=== PATIENT | female | born 1980 | race Caucasian/White ===

== ENCOUNTER 2017-12-31 15:25 | Emergency (ER) | payer BC, MEDICAID, OTHER ==
[2017-12-31 15:26] VITALS: BMI 36.0
[2017-12-31 16:36] VITALS: BP 113/78; PULSE 73; RESP 20; TEMP 98.1; O2SAT 98
[2017-12-31] MEDS ORDERED: Sodium Chloride 0.9% 1,000 ML IV STA (16:42)
--- NOTE | 2017-12-31 17:13 | ED PDOC ---
HPI:Nausea, Vomiting, Diarrhea Time Seen by Provider: 12/31/17 16:15 Chief Complaint (Nursing): GI Problem Chief Complaint (Provider): GI Problem History Per: Patient History/Exam Limitations: no limitations Onset/Duration Of Symptoms: Persistent (x1 week) Current Symptoms Are (Timing): Still Present Additional Complaint(s): 37 year old female, currently 13 weeks , presents to the emergency department with complaints of persistent nausea and vomiting associated with diarrhea, weakness, dizziness and mild abdominal cramping ongoing for 1 week. She reports having vaginal bleeding 2 days ago but symptom had improved since onset. She denies any fever, chills, headache or syncope. Patient has a history of previous complicated by cervical incompetence due to bed rest. INFORMATION ANALYST: Dr. Mejia at [facility] Past Medical History Reviewed: Historical Data, Nursing Documentation, Vital Signs Vital Signs: Last Vital Signs Temp 98.1 F 12/31/17 16:33 Pulse 73 12/31/17 16:33 Resp 20 12/31/17 16:33 BP 113/78 12/31/17 16:33 Pulse Ox 98 12/31/17 16:33 - Medical History PMH: No Chronic Diseases - Surgical History Other surgeries: rhinoplasty - Family History Family History: States: Unknown Family Hx - Social History Current smoker - smoking cessation education provided: No Alcohol: None Drugs: Denies - Immunization History Hx Tetanus Toxoid Vaccination: No Hx Influenza Vaccination: No Hx Pneumococcal Vaccination: No - Home Medications Home Medications: Ambulatory Orders Medication Instructions Recorded Famotidine [Pepcid] 20 mg PO BID #30 tab 04/17/15 Ondansetron ODT [Zofran ODT] 1 odt PO BID PRN #6 odt 04/17/15 - Allergies Allergies/Adverse Reactions: Allergies Allergy/AdvReac Type Severity Reaction Status Date / Time Penicillins Allergy RASH Verified 10/03/15 20:13 Review of Systems ROS Statement: Except As Marked, All Systems Reviewed And Found Negative Constitutional: Positive for: Weakness. Negative for: Fever, Chills Gastrointestinal: Positive for: Nausea, Vomiting, Diarrhea (x1), Other (mild abdominal cramping) Genitourinary Female: Positive for: Vaginal Bleeding (resolved) Neurological: Positive for: Dizziness. Negative for: Headache, Other (syncope) Physical Exam - Reviewed Nursing Documentation Reviewed: Yes Vital Signs Reviewed: Yes - Physical Exam Appears: Positive for: No Acute Distress Head Exam: Positive for: ATRAUMATIC, NORMAL INSPECTION, NORMOCEPHALIC Skin: Positive for: Dry. Negative for: Normal Color Cardiovascular/Chest: Positive for: Regular Rate, Rhythm Respiratory: Positive for: Normal Breath Sounds. Negative for: Respiratory Distress Gastrointestinal/Abdominal: Positive for: Soft, Tenderness (diffuse) Back: Positive for: Normal Inspection. Negative for: L CVA Tenderness, R CVA Tenderness Extremity: Positive for: Normal ROM (upper/lower) Neurologic/Psych: Positive for: Alert (x3), Oriented. Negative for: Motor/ Sensory Deficits - Laboratory Results Result Diagrams: 12/31/17 17:26 12/31/17 17:26 - ECG O2 Sat by Pulse Oximetry: 98 (RA) Pulse Ox Interpretation: Normal Medical Decision Making Medical Decision Making: Initial Impression: Hyperemesis; 2nd trimester Initial Plan: * CMP * Lipase * CBC * NS 1,000ml IV per 1,000mls/hr * Reglan 10mg IVP * UA Time: 1643 --US OB ordered to check fetus' wellbeing. Time: 1720 --Labs: unremarkable finding. --Urine: negative for infection. Time: 1835 --US OB FINDINGS: UTERUS: Gestational sac: Single intrauterine gestation. Measures 4.8 cm compatible with estimated gestational age of 10 weeks, 3 days. Yolk sac: Measures 0.6 cm. pole: [place]-rump length measures 3.9 cm compatible with estimated gestational age of 10 weeks, 5 days. Heart rate: 162 bpm. age (Ultrasound estimated): 10 weeks, 4 days. Nimo-gestational hemorrhage: None. Date of delivery (Ultrasound estimated) : 07/25/2018 Uterus measures 15.3 x 6.5 x 8.2 cm. Normal in size and appearance. CERVIX: Measures 5.5 cm. Long and closed. No cervical abnormality seen. RIGHT OVARY: Not visualized. LEFT OVARY: Measures 2.3 x 1.9 x 2.5 cm. Follicle/cyst measuring 1.1 x 1.0 x 1.4 cm. Normal flow. FREE FLUID: None. OTHER FINDINGS: None. IMPRESSION: Single live intrauterine gestation with average ultrasound age of 10 weeks, 4 days. heart rate 160 beats per minute. Cervix long closed. Additional IVF bolus ordered endorse Dr Martinez 710pm Scribe Attestation: Documented by Jossy Cook, acting as a scribe for Dr. Romario Puga III, DO. Provider Scribe Attestation: All medical record entries made by the Scribe were at my direction and personally dictated by me. I have reviewed the chart and agree that the record accurately reflects my personal performance of the history, physical exam, medical decision making, and the department course for this patient. I have also personally directed, reviewed, and agree with the discharge instructions and disposition. Disposition - Clinical Impression Clinical Impression: Hyperemesis gravidarum - Patient ED Disposition Is Patient to be Admitted: Transfer of Care - Disposition Disposition: Transfer of Care Disposition Time: 19:01 Condition: STABLE Forms: [facility] (Czech) Patient Signed Over To: David Martinez Handoff Comments: pending re-eval and dispo
[2017-12-31 17:30] LABS: BASO # 0.1 K/uL (0.0-0.2); BASO % 1.2 % (0.0-2.0); EOS # 0.2 K/uL (0.0-0.7); HEMOGLOBIN 12.2 g/dL (12.0-16.0); LYMPH # 3.1 K/uL (1.0-4.3); LYMPH % 33.9 % (20.0-40.0); MEAN CELL VOLUME 88.6 fl (81.0-99.0); MEAN CORPUSCULAR HEMOGLOBIN 30.6 pg (27.0-31.0); MEAN CORPUSCULAR HGB CONC 34.6 g/dL (33.0-37.0); MEAN PLATELET VOLUME 9.7 fl (7.2-11.7); MONO # 0.7 K/uL (0.0-0.8); MONO % 7.9 % (0.0-10.0); NRBC % 0.2 % (0.0-0.0); RBC 3.97 Mil/uL (3.80-5.20); RED CELL DISTRIBUTION WIDTH 13.9 % (11.5-14.5)
[2017-12-31 17:36] LABS: SQUAMOUS EPITHIAL 1 /hpf (0-5); URINE BACTERIA RARE (<OCC); URINE BILIRUBIN NEGATIVE (NEGATIVE); URINE BLOOD NEGATIVE (NEGATIVE); URINE CLARITY CLEAR (Clear); URINE COLOR STRAW (YELLOW); URINE GLUCOSE (UA) NEG (Normal); URINE LEUKOCYTE ESTERASE NEG Leu/uL (Negative); URINE PROTEIN NEGATIVE (NEGATIVE); URINE UROBILINOGEN 0.2-1.0 mg/dL (0.2-1.0)
[2017-12-31 17:45] LABS: ALB/GLOB RATIO 1.1 (1.0-2.1); ALBUMIN 3.9 g/dL (3.5-5.0); ALT/SGPT 58 U/L (9-52); AST/SGOT 35 U/L (14-36); BLOOD UREA NITROGEN 8 mg/dl (7-17); CALCIUM 9.3 mg/dL (8.4-10.2); GFR AFRICAN-AMERICAN > 60; GFR NON-AFRICAN AMERICAN > 60; LIPASE 85 U/L (23-300)
--- NOTE | 2017-12-31 18:37 | US ---
PROCEDURE: OB Pelvic Ultrasound HISTORY: 13 wks well being LMP: Unknown COMPARISON: None available. FINDINGS: UTERUS: Gestational sac: Single intrauterine gestation. Measures 4.8 cm compatible with estimated gestational age of 10 weeks, 3 days. Yolk sac: Measures 0.6 cm. pole: [place]-rump length measures 3.9 cm compatible with estimated gestational age of 10 weeks, 5 days. Heart rate: 162 bpm. age (Ultrasound estimated): 10 weeks, 4 days. Nimo-gestational hemorrhage: None. Date of delivery (Ultrasound estimated) : 07/25/2018 Uterus measures 15.3 x 6.5 x 8.2 cm. Normal in size and appearance. CERVIX: Measures 5.5 cm. Long and closed. No cervical abnormality seen. RIGHT OVARY: Not visualized. LEFT OVARY: Measures 2.3 x 1.9 x 2.5 cm. Follicle/cyst measuring 1.1 x 1.0 x 1.4 cm. Normal flow. FREE FLUID: None. OTHER FINDINGS: None. IMPRESSION: Single live intrauterine gestation with average ultrasound age of 10 weeks, 4 days. heart rate 160 beats per minute. Cervix long closed.
[2017-12-31] MEDS ORDERED: Lactated Ringer's 1,000 ML IV SCH (18:45)
--- NOTE | 2017-12-31 21:00 | ED PDOC ---
- Laboratory Results Result Diagrams: 12/31/17 17:26 12/31/17 17:26 - ECG O2 Sat by Pulse Oximetry: 98 (RA) Medical Decision Making Medical Decision Making: Time: 1899 --Patient endorsed to provider by Dr. Puga, pending re-eval and final disposition. Time: 2099 --Upon provider reevaluation, patient is feeling better, tolerating PO well and states that she wants to go home. Patient is medically stable and requires no further treatment in the ED at this time. Patient will be discharged home. Counseling was provided and all questions were answered regarding diagnosis and need for follow up with PMD in 1-2 days. There is agreement to discharge plan. Return if symptoms persist or worsen. Clinical Impression: Hyperemesis gravidarum Scribe Attestation: Documented by Jossy Cook, acting as a scribe for David Alves MD. Provider Scribe Attestation: All medical record entries made by the Scribe were at my direction and personally dictated by me. I have reviewed the chart and agree that the record accurately reflects my personal performance of the history, physical exam, medical decision making, and the department course for this patient. I have also personally directed, reviewed, and agree with the discharge instructions and disposition. Disposition Counseled Patient/Family Regarding: Studies Performed, Diagnosis, Need For Followup - Clinical Impression Clinical Impression: Hyperemesis gravidarum - POA Present On Arrival: None - Disposition Disposition: Routine/Home Disposition Time: 21:00 Condition: STABLE Additional Instructions: Take your medications. Follow up with your PCP in 2-3 days. Instructions: Hyperemesis Gravidarum
== END 2017-12-31 21:17 | disposition home or self-care (01) ==
LOC: H.ER 15:25
DX: O21.0 Mild hyperemesis gravidarum (principal); O26.891 Other specified pregnancy related conditions, first trimester; Z3A.13 13 weeks gestation of pregnancy; Z88.0 Allergy status to penicillin
CPT/HCPCS: 76815; 80053; 81003; 83690; 85025; 96361; 96374; 99283; J2765; J7030; J7120

== ENCOUNTER 2018-05-19 12:37 | Emergency (ER) | payer BC ==
[2018-05-19 12:37] VITALS: BMI 36.0
[2018-05-19 12:41] VITALS: RESP 18
[2018-05-19] MEDS ORDERED: Sodium Chloride 0.9% 1,000 ML IV STA (12:59)
--- NOTE | 2018-05-19 13:02 | ED PDOC ---
HPI: General Adult Time Seen by Provider: 05/19/18 13:00 Chief Complaint (Nursing): Dizziness/Lightheaded Chief Complaint (Provider): dizzy History Per: Patient (37 y/o female 30 weeks here with dizziness/room spinning this morning. Notes diarrhea 2 days ago. No fevers/chills. Notes nausea associated with dizziness.) Past Medical History Reviewed: Historical Data, Nursing Documentation, Vital Signs Vital Signs: Last Vital Signs Temp 98.3 F 05/19/18 12:39 Pulse 91 H 05/19/18 12:39 Resp 18 05/19/18 12:39 BP 110/77 05/19/18 12:39 Pulse Ox 100 05/19/18 12:39 - Family History Family History: States: Unknown Family Hx - Immunization History Hx Tetanus Toxoid Vaccination: No Hx Influenza Vaccination: No Hx Pneumococcal Vaccination: No - Home Medications Home Medications: Ambulatory Orders Medication Instructions Recorded Famotidine [Pepcid] 20 mg PO BID #30 tab 04/17/15 Ondansetron ODT [Zofran ODT] 1 odt PO BID PRN #6 odt 04/17/15 Meclizine [Antivert] 1 - 2 tab PO Q6 PRN #24 tab 05/19/18 - Allergies Allergies/Adverse Reactions: Allergies Allergy/AdvReac Type Severity Reaction Status Date / Time Penicillins Allergy RASH Verified 05/19/18 12:39 Review of Systems ROS Statement: Except As Marked, All Systems Reviewed And Found Negative Physical Exam - Reviewed Nursing Documentation Reviewed: Yes Vital Signs Reviewed: Yes - Physical Exam Appears: Positive for: Well, Non-toxic, No Acute Distress Head Exam: Positive for: ATRAUMATIC, NORMAL INSPECTION, NORMOCEPHALIC Skin: Positive for: Normal Color, Warm, DRY Eye Exam: Positive for: EOMI, Normal appearance, PERRL ENT: Positive for: Normal ENT Inspection Neck: Positive for: Normal, Painless ROM Cardiovascular/Chest: Positive for: Regular Rate, Rhythm Respiratory: Positive for: CNT, Normal Breath Sounds Gastrointestinal/Abdominal: Positive for: Normal Exam, Soft, Other (gravid uterus.) Back: Positive for: Normal Inspection Extremity: Positive for: Normal ROM Neurologic/Psych: Positive for: Alert, Oriented - Laboratory Results Result Diagrams: 05/19/18 13:05 05/19/18 13:05 - ECG O2 Sat by Pulse Oximetry: 100 - Progress ED Course And Treament: Reglan 10 mg iv x 1 dose NS 1 liter wide open. Antivert 25 mg x 1 dose Patient feels improved. Disposition - Clinical Impression Clinical Impression: Vertigo - Patient ED Disposition Is Patient to be Admitted: No - Disposition Disposition: Routine/Home Disposition Time: 13:51 Condition: FAIR Prescriptions: Meclizine [Antivert] 1 - 2 tab PO Q6 PRN #24 tab PRN Reason: Dizziness Instructions: Vertigo (a Type of Dizziness) (DC) Print Language: MAURITANIAN
[2018-05-19 13:24] LABS: BASO # 0.1 K/uL (0.0-0.2); BASO % 0.9 % (0.0-2.0); EOS # 0.2 K/uL (0.0-0.7); HEMOGLOBIN 11.3 g/dL (12.0-16.0); LYMPH # 2.4 K/uL (1.0-4.3); LYMPH % 23.2 % (20.0-40.0); MEAN CELL VOLUME 90.4 fl (81.0-99.0); MEAN CORPUSCULAR HEMOGLOBIN 30.5 pg (27.0-31.0); MEAN CORPUSCULAR HGB CONC 33.7 g/dL (33.0-37.0); MEAN PLATELET VOLUME 8.9 fl (7.2-11.7); MONO # 0.8 K/uL (0.0-0.8); MONO % 8.3 % (0.0-10.0); NEUT # 6.7 K/uL (1.8-7.0); NEUT % 65.6 % (50.0-75.0); NRBC % 0.1 % (0.0-0.0); RBC 3.69 Mil/uL (3.80-5.20); RED CELL DISTRIBUTION WIDTH 13.5 % (11.5-14.5); WHITE BLOOD COUNT 10.2 K/uL (4.8-10.8)
[2018-05-19 13:30] LABS: ALB/GLOB RATIO 0.9 (1.0-2.1); ALBUMIN 3.3 g/dL (3.5-5.0); ALT/SGPT 26 U/L (9-52); AST/SGOT 25 U/L (14-36); BLOOD UREA NITROGEN 6 mg/dl (7-17); CALCIUM 8.7 mg/dL (8.4-10.2); GFR NON-AFRICAN AMERICAN > 60
--- NOTE | 2018-05-19 16:22 | OBHP ---
Datetime: 05/19/2018 15:20 IP Adm Impression: , intrauterine IP Admit Plan: Observation/Evaluation Admit Comment, IP Provider: 37 y/o @ 29.6 w/KIMMY 07/29/2017 c/o intermittent dizziness _ headac he since yesterday. She states dizziness worsened today making her feel as if she would fall. She end orses +FM, denies ctx, vb, loss of fluid, f/c/vomiting, difficulty breathing or chest discomfort. +Na usea for which she takes a medication she cannot recall. OBGYNhx: 1 miscarriage PMH: denies Meds: PNV, antinausea med Allergies: penicillin- unknown reaction Surghx: denies Famhx: denies Sochx: denies EtOH, cigarette or elicit drug use ROS: all points reviewed and neg unless otherwise mentioned in HPI Gen: obese female laying in supine position Cardio: s1s2, no murmurs Lungs: cta b/l Abd: Gravid, BS+, nontender Ext: nontender, nonedematous A/P: 37 y/o @ 29.6 w/KIMMY 07/29/2017 c/o intermittent dizziness _ headache since yesterday. -Perform NST, FHR, and vitals. If stable _ reactive, discharge home. Case disussed with Dr. Forest Garg, PGY-1 NST reactive, moderate variability, vitals stable, discharge home Addendum by Dr. Ortez: Pt evaluated independently and I agree with the above Extremities - PN: Normal Abdomen - PN: Normal Lungs - PN: Normal Heart - PN: Normal General - PN: Normal FHR - Baseline A Provider: 135 Gestation - Est Wks by US: 29.6 EGA AdmitDate IP: 29.6 Vital Signs Provider: Reviewed; Within Normal Limits IP Chief Complaint: Maternal discomfort NICHD Variability Prov Fetus A: Moderate 6-25bpm NICHD Accel Fetus A IP Provider: 15X15 FHR Category Provider Fetus A: Category I NICHD Decel Fetus A IP Provider: None
--- NOTE | 2018-05-19 16:24 | OBDCSUM ---
Datetime: 05/19/2018 15:57 Discharged to, Provider: Home Follow up at, Provider: private [facility] Disch Instr Activity: Normal activity Disch Instr Diet: Regular Discharge Time: 05/19/2018 16:15 Follow up in weeks, Provider: 1-2 wks Disch Referrals: None Discharge Diagnosis Prov Other: NST
[2018-05-19 20:37] VITALS: BP 103/57; PULSE 90; TEMP 98.4; O2SAT 97
--- NOTE | 2018-05-20 09:46 | CARD ---
APPROVED REPORT Date of service: 05/19/2018 EKG Measurement Heart [id number] <Conclusion> Normal sinus rhythm Moderate voltage criteria for LVH, may be normal variant Borderline ECG
== END 2018-05-19 16:36 | disposition home or self-care (01) ==
LOC: H.EROB2 12:37
DX: O26.93 Pregnancy related conditions, unspecified, third trimester (principal); R42 Dizziness and giddiness; R11.0 Nausea; Z3A.29 29 weeks gestation of pregnancy
CPT/HCPCS: 80053; 82948; 83735; 84100; 84702; 85025; 93005; 96374; 99285; J2765; J7030

== ENCOUNTER 2018-06-15 19:57 | Emergency (ER) | payer BC ==
[2018-06-15 20:26] VITALS: BMI 38.4
[2018-06-15] MEDS: Lactated Ringer's 1,000 ML IV SCH ×2 (21:50→22:50)
--- NOTE | 2018-06-15 22:24 | OBHP ---
Datetime: 06/15/2018 22:19 IP Adm Impression: , intrauterine ; No Active Labor IP Admit Plan: Observation/Evaluation; Discharge home Admit Comment, IP Provider: The patient is a 37-year-old 4 para 2 estimated due date 019 estimated gestational age 34 weeks patient presents to labor and delivery complaining of pelvic p ressure discomfort for about 6 hours duration patient denies any vaginal bleeding leakage of fluid sh e reports good movement patient denies dysuria Past medical history none Past surgical history none Allergic to penicillin Social history denies tobacco alcohol use care patient reports borderline diabetes Review of systems patient denies headache chest pain shortness breath palpitations nausea vomiting diarrhea heat or cold intolerance easy bruisability musculoskeletal or neurological complaints Vital signs stable afebrile Physical exam see notes Intrauterine at 34 weeks Jitendra Rousseau contractions IV fluid hydration, UA, external monitor, observation Pelvic Type - PN: Adequate Extremities - PN: Normal Abdomen - PN: Normal Back - PN: Normal Breast - PN: Not Done Lungs - PN: Normal Heart - PN: Normal Thyroid - PN: Normal Neurologic - PN: Normal HEENT - PN: Normal General - PN: Normal Presentation-Admit: Breech FHR - Baseline A Provider: 145 Gestation - Est Wks by US: 34.0 EGA AdmitDate IP: 33.5 Vital Signs Provider: Reviewed IP Chief Complaint: Uterine contractions; Maternal discomfort NICHD Variability Prov Fetus A: Moderate 6-25bpm NICHD Accel Fetus A IP Provider: 10X10 FHR Category Provider Fetus A: Category I NICHD Decel Fetus A IP Provider: None Dilatation, Provider: 0 Effacement, Provider: 0 Station, Provider: -2 Genitourinary Exam: Normal DTRs - PN: Normal
[2018-06-15 22:27] LABS: SQUAMOUS EPITHIAL 4 /hpf (0-5); URINE AMORPHOUS SEDIMENT RARE /ul (<OCC); URINE BACTERIA MANY (<OCC); URINE BILIRUBIN NEGATIVE (NEGATIVE); URINE BLOOD NEGATIVE (NEGATIVE); URINE CLARITY CLOUDY (Clear); URINE COLOR YELLOW (YELLOW); URINE GLUCOSE (UA) NEG (NEGATIVE); URINE LEUKOCYTE ESTERASE NEG Leu/uL (Negative); URINE PROTEIN NEGATIVE (NEGATIVE); URINE UROBILINOGEN 0.2-1.0 mg/dL (0.2-1.0)
[2018-06-16 04:29] VITALS: BP 94/60; PULSE 89
== END 2018-06-15 23:45 | disposition home or self-care (01) ==
LOC: H.EROB2 19:57
DX: O26.93 Pregnancy related conditions, unspecified, third trimester (principal); R10.2 Pelvic and perineal pain; Z3A.34 34 weeks gestation of pregnancy
CPT/HCPCS: 81003; 96360; 96361; 99283; J7120

== ENCOUNTER 2018-07-21 08:07 | Inpatient (IN) | payer BC ==
[2018-07-21] MEDS ORDERED: ceFAZolin 2 GM in Sodium Chloride 0.9% 100 ML IVPB ONE (08:29)
[2018-07-21] MEDS: Lactated Ringer's 1,000 ML IV ONE ×2 (08:30→09:32)
[2018-07-21] MEDS ORDERED: Lactated Ringer's 1,000 ML IV SCH ×2 (08:30→14:59)
[2018-07-21] MEDS ORDERED: Oxytocin 30 UNIT 30 UNITS/500 ML BAG IV ONE ×2 (08:33→14:02)
[2018-07-21] MEDS ORDERED: OXYTOCIN/0.9 % NS 20 UNIT/1,000 ML BAG IV ONE ×2 (08:33→12:29)
[2018-07-21] MEDS ORDERED: Morphine 5 mg/10 ml preservative-free Inj(Duramorph) ONE (09:13)
[2018-07-21 09:21] LABS: BASO % 0.3 % (0.0-2.0); EOS # 0.2 K/uL (0.0-0.7); EOS % 1.9 % (0.0-4.0); HEMOGLOBIN 11.3 g/dL (12.0-16.0); LYMPH % 25.8 % (20.0-40.0); MEAN CELL VOLUME 88.1 fl (81.0-99.0); MEAN CORPUSCULAR HEMOGLOBIN 28.1 pg (27.0-31.0); MEAN PLATELET VOLUME 9.3 fl (7.2-11.7); MONO # 0.8 K/uL (0.0-0.8); MONO % 6.6 % (0.0-10.0); NEUT # 7.5 K/uL (1.8-7.0); NEUT % 65.4 % (50.0-75.0); NRBC % 0.1 % (0.0-0.0); RBC 4.02 Mil/uL (3.80-5.20); RED CELL DISTRIBUTION WIDTH 15.1 % (11.5-14.5); WHITE BLOOD COUNT 11.5 K/uL (4.8-10.8)
[2018-07-21] MEDS ORDERED: Gentamicin 80mg/50ml NS 80 MG/50 ML BAG IVPB ONE (09:23)
[2018-07-21] MEDS ORDERED: DiphenhydrAMINE 50 mg/ml Inj IVP PRN ×3 (10:19→19:33)
[2018-07-21] MEDS ORDERED: Naloxone 0.4 mg/ml Inj (Adult) IVP PRN ×2 (10:19→14:59)
[2018-07-21] MEDS: Lactated Ringer's 1,000 ML IV SCH ×4 (12:00→21:42)
[2018-07-21] MEDS ORDERED: Oxycodone/Acetaminophen 5/325 mg Tab PO PRN ×4 (12:10→14:59)
[2018-07-21] MEDS ORDERED: OXYTOCIN/0.9 % NS 20 UNIT/1,000 ML BAG IV SCH (16:30)
[2018-07-22] MEDS: Lactated Ringer's 1,000 ML IV SCH (04:24)
[2018-07-22 06:39] LABS: HEMOGLOBIN 9.3 g/dL (12.0-16.0); MEAN CELL VOLUME 87.5 fl (81.0-99.0); MEAN CORPUSCULAR HEMOGLOBIN 28.7 pg (27.0-31.0); MEAN CORPUSCULAR HGB CONC 32.8 g/dL (33.0-37.0); RBC 3.23 Mil/uL (3.80-5.20); RED CELL DISTRIBUTION WIDTH 15.2 % (11.5-14.5); WHITE BLOOD COUNT 11.7 K/uL (4.8-10.8)
[2018-07-22] MEDS: Multivitamin With Minerals Tab PO SCH (08:45)
[2018-07-22] MEDS ORDERED: Multivitamin With Minerals Tab PO SCH ×2 (09:00)
[2018-07-22] MEDS: Oxycodone/Acetaminophen 5/325 mg Tab PO PRN ×4 (10:53→22:22)
--- NOTE | 2018-07-22 13:34 | OBPPN ---
Datetime: 07/22/2018 07:02 PP Pain Prov: Within normal limits PP Nausea Prov: Denies PP Flatus Prov: Yes PP BM Prov: No PP Breasts Prov: Not Done PP Heart Prov: Normal PP Lungs Prov: Normal PP Abdomen/Uterus Prov: Normal PP Lochia Prov: Not Done PP Vulva/Perineum Prov: Not Done PP CVA Tenderness Prov: Normal PP Extremities Prov: Normal PP C/S Incision Prov: Normal PP Progress Prov: Normal PP Impression Prov: Normal progression PP Plan Prov: Continue present management PP Progress Note Prov: 37y/o , 39.0 wks S/P C section for macrosomia POD1 Patient seen and evaluated at bedside. Reports moderate abdominal pain which is well controlled wi th pain medications. Not ambulating yet. Pt currently on regular diet. Lochia similar to menses. Repo rts passing flatus but no BM yet. Denies fever, chills, nausea, vomiting, diarrhea, CP, SOB. Breastfe eding and formula feeding. O: VS stable GEN: Patient is comfortable. In no acute distress. Cardio: S1S2, no murmurs, gallops or rubs. Lungs: clear air entry sounds b/l, no wheezing Abdomen: BS+, tenderness to palpation. Dressing present, Incision C/D/I, Uterus is firm and at the level of the umbilicus. EXT: No edema, calves non-tender to palpation, Veronique's Negative Assessment/Plan: 37 y/o , 39.0 S/P C section for macrosomia on POD0. - SCDs for DVT prophylaxis, encouraged ambulating -Remove dressing at 11: 00AM 07/22 - Percocet 5/325mg, and Tylenol 650 Q4hr PRN for pain - Senokot for constipation - Continue to encourage and ambulating - f/u CBC post op: Pending - Anticipated D/C on 07/24/18 --- Manuel Barone MD PGY-[address] Ortez: I have evaluated the patient independently and i agree with the above Vital Signs Provider PP: Reviewed; Within Normal Limits
--- NOTE | 2018-07-22 15:04 | OBADHP ---
Datetime: 07/21/2018 08:44 Admit Comment, IP Provider: 37 y/o female @38.6 wk GA presents to [facility] w/ painful contractio ns Q5mins that started this morning. She states that she is scheduled for a tomorrow at [facility] due to estimated weight of 10lbs on Wednesday on u/s. She denies LOF, VB, a nd endorses movement. Patient's last meal was last night at 6PM. She denies headache, visual ch anges, SOB, chest pain, n/v, urinary symptoms. Pmhx: denies Obhx: x2 HomeRx: vitamins SurgHx: denies Famhx: non-contributory Socialhx: denies toxic habits Allergies: Penicillin ROS: negative except per HPI Physcial exam: Gen: appears uncomfortable Heart: s1 s2 present, RRR Lungs: Normal resp effort, clear to auscultation bilaterally Abd: Gravid, soft, non-tender SVE: (By Nurse Alysa) 2cm/50%/-3 Extremities: no swelling/erythema/tenderness Assessment and Plan 37 y/o female @38.6 wk GA IUP Per patient, she is scheduled for tomorrow as estimated weight on last u/s >10lbs [place] ctx Q5mins, NST reactive SVE 2/50%/-3 Admit patient to unit Will contact patient's ob for records CBC, Type and Screen, HBsAg, HIV, RPR, rubella IgG LR 1L IV bouls x 2 LR 1L IV @125mL/hr Clindamycin 900mg IV x1 Gentamycin 80mg IV x1 NPO Anesthesiology consulted Case discussed w/ attending, Dr. Gregg Cruz, pgyi Pelvic Type - PN: Adequate Extremities - PN: Normal Abdomen - PN: Normal Back - PN: Not Done Breast - PN: Not Done Lungs - PN: Normal Heart - PN: Normal Thyroid - PN: Not Done Neurologic - PN: Not Done HEENT - PN: Not Done General - PN: Normal FHR - Baseline A Provider: 150 Gestation - Est Wks by US: 38.6 Vital Signs Provider: Reviewed; Within Normal Limits IP Chief Complaint: Uterine contractions NICHD Variability Prov Fetus A: Moderate 6-25bpm NICHD Accel Fetus A IP Provider: 15X15 FHR Category Provider Fetus A: Category I NICHD Decel Fetus A IP Provider: None Dilatation, Provider: 2 Effacement, Provider: 50 Station, Provider: -3 Genitourinary Exam: Normal DTRs - PN: Not Done EGA AdmitDate IP: 38.6 IP Adm Impression: Term, intrauterine IP Admit Plan: Admit to unit; Initiate Section protocol Datetime: 06/15/2018 22:19 Presentation-Admit: Breech
--- NOTE | 2018-07-22 15:07 | OBDS ---
DELIVERY PERSONNEL Delivery Doctor: Lydia Escobedo MD Scrub Nurse: Luna García OBT Bag Loader: Alysa Wyatt RN Anesthesiologist: MD juan Resident: Eliud (fellow) MATERNAL INFORMATION Delivery Anesthesia: Spinal Medications in Delivery: Pitocin Estimated Blood Loss (ml): 800 Placenta Cultured: No Maternal Complications: None RN Comments: Atraumatic primary delivery of viable baby boy with louise cry infant and patie nt tolerated delivery well. Provider Comments: Low transverse section Via Pfannenstiel incision. Patient delivered a v iable infant male with Apgars of 9 and 9 at 5 minutes respectively. Normal uterus, normal tubes and ovaries bilaterally. Estimated blood loss 800 cc Fluids 2200 cc lactated Ringer's Urine output 150 cc of clear urine No complications Patient tolerated procedure well Refer to dictation LABOR SUMMARY EDC: 07/29/2018 00:00 No. Babies in Womb: 1 Attempted: No Labor Anesthesia: Spinal LABOR INFORMATION Reason for Induction: Not Applicable Onset of Labor: 07/21/2018 06:00 Oxytocin: N/A Group B Beta Strep: Negative Steroids Given: None Reason Steroids Not Administered: Not Applicable Other Reason Not Administered: Not required MEMBRANES Membranes Rupture Method: Spontaneous Rupture of Membranes: 07/21/2018 11:02 Length of Rupture (hrs): 0.00 Amniotic Fluid Color: Clear Amniotic Fluid Amount: Moderate Amniotic Fluid Odor: Normal STAGES OF LABOR Stage 3 hrs: 0 Stage 3 min: 1 Total Time in Labor hrs: 5 Total Time in Labor min: 3 CSECTION DELIVERY Primary Indication: Other Other Primary Indication: macrosomia CSection Urgency: Emergency CSection Incidence: Primary CSection Incision: Lower Uterine Transverse BABY A INFORMATION Delivery Date/Time: 07/21/2018 11:02 Method of Delivery: Born in Route : No : N/A Forceps: N/A Vacuum Extraction: N/A Shoulder Dystocia : No SHOULDER DYSTOCIA BABY A Infant Delivery Date/Time: 07/21/2018 11:02 PRESENTATION/POSITION BABY A Presentation: Cephalic Cephalic Presentation: Vertex Vertex Position: Left Occipital Anterior Breech Presentation: N/A PLACENTA INFORMATION BABY A Placenta Delivery Time : 07/21/2018 11:03 Placenta Method of Delivery: Manual Removal Placenta Status: Delivered SCORES BABY A Heart Rate 1 min: >100 bpm Resp Effort 1 min: Good Cry Reflex Irritability 1 min: Cough or Sneeze or Pulls Away Muscle Tone 1 min: Active Motion Color 1 min: Body [place], Extremities Blue Resuscitation Effort 1 min: N/A SCORE 1 MIN: 9 Heart Rate 5 min: >100 bpm Resp Effort 5 min: Good Cry Reflex Irritability 5 min: Cough or Sneeze or Pulls Away Muscle Tone 5 min: Active Motion Color 5 min: Body [place], Extremities Blue Resuscitation Effort 5 min: N/A SCORE 5 MIN: 9 INFANT INFORMATION BABY A Gestational Age at Delivery: 38.0 Gestational Status: Term Infant Outcome : Liveborn Condition : Stable Sex: Male IDENTIFICATION/MEDS BABY A ID Band Number: [id number] WEIGHT/LENGTH BABY A Birthweight (gms): 4655 Infant Weight (lb): 10 Weight (oz): 4 Infant Length Inches: 22.00 Infant Length cms: 55.9 CORD INFORMATION BABY A No. Cord Vessels: 3 Nuchal Cord : N/A Cord Blood Taken: No Infant Suction: Mouth ASSESSMENT BABY A Complications: None Physical Findings at Delivery: Within Normal Limits Respirations: Appears Normal [employer] Maintenance Manager/ALS Called : No Care By: Dr Reaves Transferred To: Remains with Mother
--- NOTE | 2018-07-22 19:15 | OP ---
PROCEDURE DATE: 07/21/2018 PREOPERATIVE DIAGNOSIS: Suspected macrosomia at 39 weeks' gestational age. POSTOPERATIVE DIAGNOSIS: Suspected macrosomia at 39 weeks' gestational age. OPERATION PERFORMED: Primary low-flap transverse section via Pfannenstiel incision, bilateral tubal ligation done via bilateral salpingectomy. SURGEON: Gamaliel Escobedo MD CENSUS TAKER: Dr. Yenny Kline. ANESTHESIA: Spinal. ANESTHESIOLOGIST: Ted Keyes MD. OPERATIVE FINDINGS: A viable male with Apgars of 9 and 9 at 1 and 5 minutes respectively, 10 pounds and 4 ounces, normal uterus, normal tubes and ovaries bilaterally. ESTIMATED BLOOD LOSS: 800 mL. FLUIDS: 2200 mL of lactated Ringer's. URINE OUTPUT: 150 mL of clear urine at the end of procedure. DESCRIPTION OF PROCEDURE: The patient was taken to the operating room where spinal anesthesia was found to be adequate. The patient was prepped and draped in normal sterile fashion in the dorsal supine position with leftward tilt. A Pfannenstiel skin incision was made with a scalpel. This was carried down through to the underlying layer of fascia with the scalpel. Midline defect was made in the fascial layer with the scalpel. The fascial incision was then extended bilaterally sharply with curved Pedersen scissors. The fascial layer was from the underlying rectus muscles both bluntly and sharply with curved Pedersen scissors. The rectus muscles were at the midline. The peritoneum was then identified, tented up with Tamara clamps x2, and entered sharply with Metzenbaum scissors. This peritoneal incision was then extended superiorly and inferiorly with good visualization of the urinary bladder. Bladder blade was inserted into the abdomen. The vesicouterine peritoneum was then identified, tented up with Tamara clamps x2, and entered sharply with Metzenbaum scissors. This peritoneal incision was then extended bilaterally with Metzenbaum scissors. The bladder flap was created digitally. The Mariangel retractor was placed over the urinary bladder. The uterus was incised with the scalpel. The uterine incision was extended bilaterally bluntly. The infant's head was delivered atraumatically. Nose and mouth were suctioned with bulb suction. The remainder of the infant was delivered without complication. The cord was clamped and cut. The was handed off to the waiting pediatricians. The cord blood was collected. The placenta was removed manually. The uterus was cleared of all clots and debris. The uterine incision was repaired with 0 Vicryl in a running, locked fashion. The second layer with same suture was used to imbricate the first to obtain excellent hemostasis. Re-inspection of the uterine incision proved excellent hemostasis. Attention was then turned to the fallopian tubes bilaterally. The fallopian tubes were isolated bilaterally, clamped with Tamara clamps x 2, transected and removed with Metzenbaum scissors bilaterally, suture ligated with 2-0 chromic x2 bilaterally. Re-inspection of the surgical pedicles proved hemostasis. The abdomen and pelvis were irrigated with copious amounts of warm normal saline. Re-inspection of the uterine incision proved excellent hemostasis. All instruments were removed from the patient. The peritoneal layer was closed with a running stitch of 2-0 chromic. The rectus muscles were reapproximated at the midline with running stitch of 2-0 chromic. The fascial layer was closed with a running stitch of 0 Vicryl. Subcutaneous tissue was closed with a running stitch of 3-0 plain. The skin was closed with subcutaneous stitch of 3-0 Vicryl. The patient tolerated the procedure well. All sponge, lap count, and needle counts were correct x2. The patient was given 2 g of Ancef just prior to the beginning of the procedure. There were no complications. The patient was taken to the recovery room in awake and stable condition. Gamaliel Escobedo MD
[2018-07-22] MEDS: Simethicone 80 mg Chewtab PO SCH (20:45)
[2018-07-23] MEDS: Oxycodone/Acetaminophen 5/325 mg Tab PO PRN ×3 (03:12→13:49)
--- NOTE | 2018-07-23 08:25 | OBPPN ---
Datetime: 07/23/2018 07:23 PP Pain Prov: Within normal limits PP Nausea Prov: Denies PP Flatus Prov: Yes PP BM Prov: Yes PP Breasts Prov: Not Done PP Heart Prov: Normal PP Lungs Prov: Normal PP Abdomen/Uterus Prov: Normal PP Lochia Prov: Normal PP Vulva/Perineum Prov: Not Done PP CVA Tenderness Prov: Not Done PP Extremities Prov: Normal PP C/S Incision Prov: Normal PP Progress Prov: Normal PP Comments Phys Exam Prov: Fundus firm Incision clean/dry/intact PP Impression Prov: Normal progression PP Plan Prov: Continue present management PP Progress Note Prov: 37y/o , 39.0 wks S/P C section for macrosomia POD2 Patient seen and evaluated at bedside. Reports mild abdominal pain which is well controlled with p ain medications. Ramey D/C, Dressing removed. Pt currently on regular diet. Lochia similar to menses. Reports passing flatus and had BM. Denies fever, chills, nausea, vomiting, diarrhea, CP, SOB. Breast feeding w/o difficulties. O: VSS GEN: Patient is comfortable. In no acute distress. Cardio: S1S2, no murmurs, gallops or rubs. Lungs: clear air entry sounds b/l, no wheezing Abdomen: BS+, tenderness to palpation. Incision C/D/I, Uterus is firm and at the level of the umbi licus. EXT: No edema, calves non-tender to palpation, Veronique's Negative Assessment/Plan: 37 y/o , 39.0 S/P C section for macrosomia on POD2. - SCDs for DVT prophylaxis, encouraged ambulating - Percocet 5/325mg, and Tylenol 650 Q4hr PRN for pain - Senokot for constipation -Simethicone 80 mg Q8 hr - Continue to encourage and ambulating - f/u CBC post op: 9.3/28/8 - Anticipated D/C on 07/24/18 --- Manuel Barone MD PGY-[address] Ortez: I have evaluated the patient independently and I agree with the above Vital Signs Provider PP: Reviewed; Within Normal Limits
[2018-07-23] MEDS: Multivitamin With Minerals Tab PO SCH (09:10)
[2018-07-23] MEDS: Simethicone 80 mg Chewtab PO SCH ×2 (09:11→16:27)
--- NOTE | 2018-07-23 17:01 | OBPPN ---
Datetime: 07/23/2018 16:00 PP Pain Prov: Within normal limits PP Nausea Prov: Denies PP Flatus Prov: Yes PP BM Prov: Yes PP Breasts Prov: Not Done PP Heart Prov: Normal PP Lungs Prov: Normal PP Abdomen/Uterus Prov: Normal PP Lochia Prov: Not Done PP Vulva/Perineum Prov: Not Done PP CVA Tenderness Prov: Normal PP Extremities Prov: Normal PP C/S Incision Prov: Normal PP Progress Prov: Not Applicable PP Impression Prov: Normal progression; Increased temperature PP Plan Prov: Continue present management PP Plan Other Prov: tylanol for fever PP Progress Note Prov: S: Patient seen and examined at bedside. She c/o chills that began at 2PM. Sh e denies pain, n/v, CP, SOB, headache, urinary sx. She reports lochia less than menses. She endorses passing flatus and having BM. incision pain controlled w/ percocet. She is tolerating PO di et and amubulating w/o difficulties. O: Vitals: Temp 102.0, HR 103, BP 124/67. Gen: sitting up comfortably in bed, no acute distress. H eart: S1 S2 Present, normal RRR. Lungs clear bilaterally. Abd: normal BS, soft, non-tender. Incision site is clean, dry; no warmth/erythema/swelling/discharge. Extremities: no tenderness/erythema/swelli ng. A: 37 y/o female S/POD#2 of due to suspected macrosomina c/o chills, now febrile. P: Start Tylanol 650mg PO Q6 PRN for fever control. Cont to monitor vitals Q2H. Will consider abx should fever persist. Percocet 5/325mg PO Q4 PRN for pain; no more than 3250mg of acetaminophen per d ay. Cont. SCDs for DVT prophylaxis, encouraged ambulating. Will check an AM cbc to monitor for leukoc ytosis. Patient and aware of plan and are agreeable. Jazzy Aljamal, pgyi Case discussed w/ attending, Dr. Donyn Silvestre, monitor temp if spikes will consider adding antibiotics. Patient seen with the residnet I agree with the note IP PP Procedures: None Vital Signs Provider PP: Reviewed Vital Signs Provider Details PP: Temp. 102.0 @ 3:35PM HR 103
[2018-07-24] MEDS: Oxycodone/Acetaminophen 5/325 mg Tab PO PRN ×2 (01:54→11:23)
[2018-07-24] MEDS: Simethicone 80 mg Chewtab PO SCH ×2 (01:55→10:02)
[2018-07-24 07:46] LABS: BASO % 0.4 % (0.0-2.0); EOS # 0.2 K/uL (0.0-0.7); EOS % 2.6 % (0.0-4.0); LYMPH # 1.4 K/uL (1.0-4.3); LYMPH % 19.5 % (20.0-40.0); MEAN CELL VOLUME 86.8 fl (81.0-99.0); MEAN CORPUSCULAR HEMOGLOBIN 28.4 pg (27.0-31.0); MEAN CORPUSCULAR HGB CONC 32.7 g/dL (33.0-37.0); MEAN PLATELET VOLUME 8.7 fl (7.2-11.7); MONO # 0.4 K/uL (0.0-0.8); MONO % 6.2 % (0.0-10.0); NEUT # 5.1 K/uL (1.8-7.0); NEUT % 71.3 % (50.0-75.0); RBC 3.88 Mil/uL (3.80-5.20); RED CELL DISTRIBUTION WIDTH 15.2 % (11.5-14.5); WHITE BLOOD COUNT 7.2 K/uL (4.8-10.8)
--- NOTE | 2018-07-24 08:57 | OBPPN ---
Datetime: 07/24/2018 06:50 PP Pain Prov: Within normal limits PP Nausea Prov: Denies PP Flatus Prov: Yes PP BM Prov: Yes PP Heart Prov: Normal PP Lungs Prov: Normal PP Abdomen/Uterus Prov: Normal PP Lochia Prov: Normal PP Extremities Prov: Normal PP Impression Prov: Normal progression PP Plan Prov: Continue present management; Discharge PP Progress Note Prov: 37 y/o , POD 3 s/p had no acute events overnight. Last fever w as at 3:35pm yesterday (102F). She has remained afebrile since then. She is tolerating PO regular t w/o n or v. Pain is well controlled. She is /bottlefeeding w/o complaints. Lochia like menses. +Flatus, +BM . She has OOB with some pain. She denies f/c/n/v/d/cp or sob. VS: wnl Gen: awake laying in bed Cardio: s1s2, no murmurs or rubs Resp: good respiratory effort cta b/l Abd: soft, minimal lower abdominal tenderness, fundus @ umbilicus; wound-c/d/i Ext: calves nontender, nonedematous A/P: 37 y/o , POD 3 s/p . - Continue SCDs for DVT prophylaxis. -Continue to encourage ambulation. - Continue pain management. - Continue to encourage -FU AM's CBC -Discharge today. -Case discussed with attending Merlene Garg, PGY-1, FM The patient was seen with the resident I agree with the note. Pt afebrile Temp most likely realted to engorgement. Will d/c home cbc wnl IP PP Procedures: None Vital Signs Provider PP: Reviewed; Within Normal Limits
--- NOTE | 2018-07-24 08:58 | OBDCSUM ---
Datetime: 07/24/2018 07:33 Discharged to, Provider: Home Follow up at, Provider: Your doctor Disch Instr Activity: May be up to bathroom; May be up for meals; May Shower Disch Instr Diet: Regular Discharge Instructions, Provider: Routine instructions given Discharge Diagnosis, Provider: Term Delivered Follow up in weeks, Provider: 2-3 days for wound check; then 6 weeks for check Disch Referrals: None Contraception discussed, Prov: Yes Disch Activity Restrictions: No lifting; Minimize stair-climbing; No sexual activity; Nothing in vag daniela - [place], tampons, douche Discharge Comment, Provider: -Continue . -Continue to walk as much as possible. -Follow up with your doctor in 2-3 days for wound check _ then in 6 weeksfor your post-delivery vi sit. -Follow up with [facility] in 5-7 days. -Nothing in the vagina for 6 weeks. -If fever of 100.4F or higher, or increased pain/bleeding, please go to the ED. The patient was seen with the resident I agree with the juan david Contraception after Delivery: Undecided
[2018-07-24] MEDS: Multivitamin With Minerals Tab PO SCH (10:02)
[2018-07-24 18:45] VITALS: BP 138/78; PULSE 50; RESP 20; TEMP 98.1; O2SAT 97
== END 2018-07-24 13:00 | disposition home or self-care (01) | DRG 785 ==
LOC: H.EROB2 08:07 → H.EROB 08:27 → H.EROB2 08:28 → H.EROB 08:29 → H.OB/GYN 15:00
PROVIDERS: ADMIT Obstetrics & Gynecology; ATTEND Obstetrics & Gynecology
PROC: 10D00Z1 Extraction of Products of Conception, Low, Open Approach (ICD-10-PCS; principal; 2018-07-21)
PROC: 0UB70ZZ Excision of Bilateral Fallopian Tubes, Open Approach (ICD-10-PCS; 2018-07-21)
PROC: 4A1HXCZ Monitoring of Products of Conception, Cardiac Rate, External Approach (ICD-10-PCS; 2018-07-21)
DX: O36.63X0 Maternal care for excessive fetal growth, third trimester, not applicable or unspecified (principal); Z37.0 Single live birth; Z3A.38 38 weeks gestation of pregnancy; Z30.2 Encounter for sterilization

== ENCOUNTER 2018-08-02 14:04 | Inpatient (IN) | payer BC ==
[2018-08-02 14:04] VITALS: BMI 38.4
[2018-08-02] MEDS ORDERED: Morphine 4 MG/ML VIAL IVP ONE ×2 (14:37→18:32)
[2018-08-02] MEDS ORDERED: ceFAZolin 1 GM in Sodium Chloride 0.9% 100 ML IVPB ONE (14:40)
[2018-08-02] MEDS ORDERED: Sodium Chloride 0.9% 2,000 ML IV STA (14:43)
--- NOTE | 2018-08-02 14:45 | ED PDOC ---
HPI: General Adult Chief Complaint (Provider): abdominal pain History Per: Patient (37 y/o female s/p Cxn delivery 07/21/2018 here for evaluation abdominal pain x 2 days by incision site. Patient is . No vomiting/diarrhea. Denies any fevers/chills.) <Joya Barone - Last Filed: 08/02/18 19:27> <Anaid Cortes - Last Filed: 08/02/18 20:52> Time Seen by Provider: 08/02/18 14:43 Chief Complaint (Nursing): Wound Check Supervising Attending Note - Supervising Attending Note The Documented history was done by the: Physician Multimedia Manager The documented physical exam was done by the: Physician Multimedia Manager, Attending Physician - Attestation: I have personally seen and examined this patient.: Yes I have fully participated in the care of the patient.: Yes I have reviewed all pertinent clinical information, including history, physical exam and plan: Yes - Notes: Notes:: fever and post ceasarian section scar with surrounding warmth, erythema and tenderness, cellulitis by exam, abscess be CT, sepsis per temp/WBC. For hospit alization for IV abx. <Anaid Cortes - Last Filed: 08/02/18 20:52> Past Medical History Reviewed: Historical Data, Nursing Documentation, Vital Signs Vital Signs: Last Vital Signs Temp 99.7 F H 08/02/18 14:07 Pulse 86 08/02/18 14:07 Resp 16 08/02/18 14:07 BP 116/79 08/02/18 14:07 Pulse Ox 98 08/02/18 14:07 - Medical History PMH: Denies: Depression, Diabetes, HTN - Family History Family History: States: Unknown Family Hx - Immunization History Hx Tetanus Toxoid Vaccination: No Hx Influenza Vaccination: No Hx Pneumococcal Vaccination: No <Joya Barone - Last Filed: 08/02/18 19:27> Vital Signs: Last Vital Signs Temp 101.2 F H 08/02/18 20:07 Pulse 86 08/02/18 14:07 Resp 16 08/02/18 14:07 BP 116/79 08/02/18 14:07 Pulse Ox 98 08/02/18 19:27 <Anaid Cortes - Last Filed: 08/02/18 20:52> - Home Medications Home Medications: Ambulatory Orders Medication Instructions Recorded RX: Famotidine [Pepcid] 20 mg PO BID #30 tab 04/17/15 RX: Pnv No.95/Ferrous Fum/Folic AC 1 tab PO DAILY MDD 1 07/21/18 [ Vitamin Tablet] RX: Ibuprofen [Motrin Tab] 600 mg PO Q6 PRN tab 07/24/18 RX: oxyCODONE/Acetaminophen 2 tab PO Q4 PRN tab 07/24/18 [Percocet 5/325 mg Tab] - Allergies Allergies/Adverse Reactions: Allergies Allergy/AdvReac Type Severity Reaction Status Date / Time Penicillins Allergy RASH Verified 06/15/18 20:26 Review of Systems ROS Statement: Except As Marked, All Systems Reviewed And Found Negative Gastrointestinal: Positive for: Abdominal Pain <Joya Barone - Last Filed: 08/02/18 19:27> Physical Exam - Reviewed Nursing Documentation Reviewed: Yes Vital Signs Reviewed: Yes - Physical Exam Appears: Positive for: Well, Non-toxic, No Acute Distress Head Exam: Positive for: ATRAUMATIC, NORMAL INSPECTION, NORMOCEPHALIC Skin: Positive for: Normal Color, Warm, DRY Eye Exam: Positive for: EOMI, Normal appearance, PERRL ENT: Positive for: Normal ENT Inspection Neck: Positive for: Normal, Painless ROM Cardiovascular/Chest: Positive for: Regular Rate, Rhythm Respiratory: Positive for: CNT, Normal Breath Sounds Gastrointestinal/Abdominal: Positive for: Normal Exam, Soft, Tenderness (erythema and tenderness noted surrounding incision site) Back: Positive for: Normal Inspection Extremity: Positive for: Normal ROM Neurologic/Psych: Positive for: Alert, Oriented <Joya Barone - Last Filed: 08/02/18 19:27> - Laboratory Results Result Diagrams: 08/02/18 15:18 08/02/18 15:18 - ECG O2 Sat by Pulse Oximetry: 98 - Progress ED Course And Treament: vancomycin 1 gm iv x 1 dose ancef 1gm iv x 1 dose IMPRESSION: 1. A small fluid collection is identified at the pelvic portion of the inferior abdominal wall which trace nondependent gas collection present suspicious for abscess. Prominent local reactive changes surround this area. Differs diagnosis is recent instrumentation with seroma present. Please see discussion above. 2. Likely fibroid uterus. repeat temp 102.8 d/w dr. napoles for admission to hospital. We will repeat bc at this time. acetaminophen 975mg x 1 dose <Joya Barone - Last Filed: 08/02/18 19:27> - Laboratory Results Result Diagrams: 08/02/18 15:18 08/02/18 15:18 Lab Results: pO2 17 mm/Hg (30-55) L 08/02/18 15:19 VBG pH 7.36 (7.32-7.43) 08/02/18 15:19 VBG pCO2 45 mmHg (40-60) 08/02/18 15:19 VBG HCO3 22.6 mmol/L 08/02/18 15: VBG Total CO2 26.8 mmol/L (22-28) 08/02/18 15: VBG O2 Sat (Calc) 23.1 % (40-65) L 08/02/18 15:19 VBG Base Excess -0.4 mmol/L (0.0-2.0) L 08/02/18 15:19 VBG Potassium 4.0 mmol/L (3.6-5.2) 08/02/18 15:19 Sodium 136.0 mmol/L (132-148) 08/02/18 15:19 Chloride 107.0 mmol/L (98-107) 08/02/18 15:19 Glucose 81 mg/dL (65-105) 08/02/18 15:19 Lactate 0.8 mmol/L (0.7-2.1) 08/02/18 15: FiO2 21.0 % 08/02/18 15:19 <Anaid Cortes - Last Filed: 08/02/18 20:52> Disposition - Patient ED Disposition Is Patient to be Admitted: Yes - Disposition Disposition Time: 18:43 - Pt Status Changed To: Hospital Disposition Of: Inpatient - Admit Certification Admit to Inpatient:: After my assessment, the patient will require hospitalization for at least two midnights. This is because of the severity of symptoms shown, intensity of services needed, and/or the medical risk in this patient being treated as an outpatient. <Joya Barone - Last Filed: 08/02/18 19:27> <Anaid Cortes - Last Filed: 08/02/18 20:52> - Clinical Impression Clinical Impression: Abscess, Cellulitis - Disposition Condition: FAIR - PA / TACTICAL DEBRIEFER OFFICER / Resident Statement MD/DO has examined the patient and agrees with the treatment plan. <Anaid Cortes - Last Filed: 08/02/18 20:52>
[2018-08-02] MEDS ORDERED: Morphine 4 MG/ML VIAL ONE ×2 (15:24→20:05)
[2018-08-02] MEDS ORDERED: Vancomycin 1 g Inj ONE (15:24)
[2018-08-02 15:27] LABS: VENOUS BLOOD GAS BASE EXCESS -0.4 mmol/L (0.0-2.0); VENOUS BLOOD GAS PCO2 45 mmHg (40-60); VENOUS BLOOD GAS PO2 17 mm/Hg (30-55); VENOUS BLOOD PH 7.36 (7.32-7.43)
[2018-08-02 15:28] LABS: BASO % 0.2 % (0.0-2.0); EOS # 0.3 K/uL (0.0-0.7); EOS % 2.1 % (0.0-4.0); HEMOGLOBIN 11.3 g/dL (12.0-16.0); LYMPH # 2.6 K/uL (1.0-4.3); LYMPH % 18.5 % (20.0-40.0); MEAN CELL VOLUME 86.1 fl (81.0-99.0); MEAN CORPUSCULAR HEMOGLOBIN 27.4 pg (27.0-31.0); MEAN CORPUSCULAR HGB CONC 31.8 g/dL (33.0-37.0); MEAN PLATELET VOLUME 7.9 fl (7.2-11.7); MONO # 0.8 K/uL (0.0-0.8); MONO % 5.7 % (0.0-10.0); NEUT # 10.4 K/uL (1.8-7.0); NEUT % 73.5 % (50.0-75.0); RBC 4.12 Mil/uL (3.80-5.20); RED CELL DISTRIBUTION WIDTH 15.4 % (11.5-14.5); WHITE BLOOD COUNT 14.1 K/uL (4.8-10.8)
[2018-08-02 15:50] LABS: BLOOD UREA NITROGEN 13 mg/dl (7-17); CALCIUM 9.4 mg/dL (8.4-10.2); GFR NON-AFRICAN AMERICAN > 60
[2018-08-02] MEDS ORDERED: Sodium Chloride 0.9% 50 ML IV ONE (16:07)
[2018-08-02] MEDS ORDERED: Iohexol 300 100 ML IJ ONE (16:07)
--- NOTE | 2018-08-02 16:53 | CT ---
Date of service: 08/02/2018 PROCEDURE: CT Abdomen and Pelvis with contrast HISTORY: R/O ABSCESS COMPARISON: None. TECHNIQUE: Following the intravenous administration of iodinated contrast material, a CT examination of the abdomen and pelvis was performed from the domes of the diaphragms to the symphysis pubis with reformatted datasets provided in axial, sagittal and coronal planes. Oral contrast was not administered as per referring physician request. Contrast dose: Omnipaque 300, 95 cc Radiation dose: Total exam DLP = 891.15 mGy-cm. This CT exam was performed using one or more of the following dose reduction techniques: Automated exposure control, adjustment of the mA and/or kV according to patient size, and/or use of iterative reconstruction technique. FINDINGS: There is a small fluid collection at the inferior abdominal pelvic wall cephalad to the months pubis region measuring 7.0 x 1.2 cm with trace gas related suspicious for potential abscess unless there has been recent instrumentation. Local reactive changes are prominent related to this fluid collection and further clinical correlation is advised. LOWER THORAX: Linear atelectasis or fibrosis bilateral lung bases. LIVER: Unremarkable. No gross lesion or ductal dilatation. GALLBLADDER AND BILE DUCTS: Unremarkable. PANCREAS: Unremarkable. No gross lesion or ductal dilatation. SPLEEN: Unremarkable. ADRENALS: Unremarkable. No mass. KIDNEYS AND URETERS: Unremarkable. No hydronephrosis. No solid mass. VASCULATURE: Unremarkable. No aortic aneurysm. No aortic atherosclerotic calcification or mural plaque present. BOWEL: Moderate fecal loading is seen throughout the large bowel. No bowel obstruction evident grossly. Small bowel hernia identified containing only fat. Small bowel loops are collapsed and unremarkable appearing grossly. Stomach is also collapsed and is poorly evaluated. Evaluation of the gastrointestinal tract is limited due to the lack of oral contrast administration. APPENDIX: No CT evidence of appendicitis. PERITONEUM: Trace cul-de-sac fluid of uncertain origin. LYMPH NODES: Unremarkable. No enlarged lymph nodes. BLADDER: Unremarkable. REPRODUCTIVE: A bulky enlarged uterus is identified suspicious for underlying fibroid uterine disease. BONES: No acute fracture. OTHER FINDINGS: None. IMPRESSION: 1. A small fluid collection is identified at the pelvic portion of the inferior abdominal wall which trace nondependent gas collection present suspicious for abscess. Prominent local reactive changes surround this area. Differs diagnosis is recent instrumentation with seroma present. Please see discussion above. 2. Likely fibroid uterus.
--- NOTE | 2018-08-02 19:54 | CP.PCM.HP ---
<Tamia Lynch - Last Filed: 08/02/18 23:30> History of Present Illness - History of Present Illness History of Present Illness: 37-year-old female with no pertinent PMH presents with 2 day history of abdominal pain at incision site s/p 07/21 (post-op day 12). She was seen by her OBGYN (Dr Mejia) on post-op day 7 for a wound check where he removed the steri-strips and expressed to the patient that it was healing appropriately. Two days ago she noticed more tenderness around the area which got progressively worse with time. She describes the pain as localized to the wound and 7/10 in severity; pain resolved with percocet she had at home. She denies fever, chills, drainage from wound, urinary symptoms, Primary OBGYN: Dr. Mejia PMD: Dr Cotter PMH: denies OBHx: , x3, C/S x1, BTL Allergies: Penicillins, reaction unknown FHx: denies Surgical Hx: facial plastic surgery 1999 Social: denies EtOH, tobacco and illicit drug use ED Course: Temp 101.2 HR 86 Resp 16 BP 116/79 Pulse Ox 98 Vitals: NS bolus Morphine 4mg CBC, BMP Abd/Pelvis CT: 1. A small fluid collection is identified at the pelvic portion of the inferior abdominal wall which trace nondependent gas collection present suspicious for abscess. Prominent local reactive changes surround this area. Differs diagnosis is recent instrumentation with seroma present. Please see discussion above. 2. Likely fibroid uterus. Present on Admission - Present on Admission Any Indicators Present on Admission: No Past Patient History - Past Social History Smoking Status: Never Smoked - CARDIAC Hx Hypertension: No - PSYCHIATRIC Hx Depression: No - SURGICAL HISTORY Hx Surgeries: Yes (plastic surgery to nose.) Meds Allergies/Adverse Reactions: Allergies Allergy/AdvReac Type Severity Reaction Status Date / Time Penicillins Allergy RASH Verified 06/15/18 20:26 Physical Exam - Constitutional Appears: No Acute Distress - Head Exam Head Exam: NORMAL INSPECTION - Eye Exam Eye Exam: Normal appearance - ENT Exam ENT Exam: Mucous Membranes Moist - Respiratory Exam Respiratory Exam: absent: Respiratory Distress - Cardiovascular Exam Cardiovascular Exam: +S1, +S2 - GI/Abdominal Exam GI & Abdominal Exam: Soft, Tenderness (tender along incision site, erythema and warmth noted. No discharge from wound noticed at time of exam. ) - Extremities Exam Extremities exam: Positive for: pedal edema (bilateral, since c/s) - Back Exam Back exam: absent: CVA tenderness (L), CVA tenderness (R) - Neurological Exam Neurological exam: Alert, Oriented x3 - Psychiatric Exam Psychiatric exam: Anxious, Normal Affect, Normal Mood - Skin Skin Exam: Dry, Intact, Normal Color, Warm Results - Vital Signs Recent Vital Signs: Last Vital Signs Temp 99.7 F H 08/02/18 14:07 Pulse 86 08/02/18 14:07 Resp 16 08/02/18 14:07 BP 116/79 08/02/18 14:07 Pulse Ox 98 08/02/18 19:27 - Labs Result Diagrams: 08/02/18 15:18 08/02/18 15:18 Labs: Laboratory Results - last 24 hr 08/02/18 08/02/18 08/02/18 15:18 15:18 15:19 WBC 14.1 H D RBC 4.12 Hgb 11.3 L Hct 35.5 MCV 86.1 MCH 27.4 MCHC 31.8 L RDW 15.4 H Plt Count 431 H D MPV 7.9 Neut % (Auto) 73.5 Lymph % (Auto) 18.5 L [place] % (Auto) 5.7 Eos % (Auto) 2.1 Baso % (Auto) 0.2 Neut # (Auto) 10.4 H Lymph # (Auto) 2.6 [place] # (Auto) 0.8 Eos # (Auto) 0.3 Baso # (Auto) 0.0 pO2 17 L VBG pH 7.36 VBG pCO2 45 VBG HCO3 22.6 VBG Total CO2 26.8 VBG O2 Sat (Calc) 23.1 L VBG Base Excess -0.4 L VBG Potassium 4.0 Glucose 81 Lactate 0.8 FiO2 21.0 Sodium 139 136.0 Potassium 4.3 Chloride 100 107.0 Carbon Dioxide 23 Anion Gap 20 BUN 13 Creatinine 0.6 L Est GFR ( Amer) > 60 Est GFR (Non-Af Amer) > 60 Random Glucose 85 Calcium 9.4 Venous Blood Potassium 4.0 Assessment & Plan - Assessment and Plan (Free Text) Assessment: 37-year-old presents on post-op day 12 for abdominal pain around c- section incision site. Plan: Post-op Cellulitis - Admit to med surg - Follow CBC, WBC 14.1 - Abd/Pelvis CT: 1. A small fluid collection is identified at the pelvic portion of the inferior abdominal wall which trace nondependent gas collection present suspicious for abscess. Prominent local reactive changes surround this area. Differs diagnosis is recent instrumentation with seroma present. Please see discussion above. 2. Likely fibroid uterus. - Pain control: Acetaminophen 650mg mild pain, Percocet 5/325 for moderate and severe pain. - Vanco 1gm Q24H - ID consulted verbally (Dr. Bernal): recommended Vanco 1gm daily. Will see patient in AM tomorrow. - IR consulted, recommendations appreciated DVT Prophylaxis -Rogerio <Kwasi Moore - Last Filed: 08/03/18 07:51> Results - Vital Signs Recent Vital Signs: Last Vital Signs Temp 97.9 F 08/03/18 00:10 Pulse 90 08/03/18 00:10 Resp 18 08/03/18 00:10 BP 101/68 08/03/18 00:10 Pulse Ox 96 08/03/18 00:10 - Labs Result Diagrams: 08/03/18 05:35 08/03/18 05:35 Labs: Laboratory Results - last 24 hr 08/02/18 08/02/18 08/02/18 15:18 15:18 15:19 WBC 14.1 H D RBC 4.12 Hgb 11.3 L Hct 35.5 MCV 86.1 MCH 27.4 MCHC 31.8 L RDW 15.4 H Plt Count 431 H D MPV 7.9 Neut % (Auto) 73.5 Lymph % (Auto) 18.5 L [place] % (Auto) 5.7 Eos % (Auto) 2.1 Baso % (Auto) 0.2 Neut # (Auto) 10.4 H Lymph # (Auto) 2.6 [place] # (Auto) 0.8 Eos # (Auto) 0.3 Baso # (Auto) 0.0 pO2 17 L VBG pH 7.36 VBG pCO2 45 VBG HCO3 22.6 VBG Total CO2 26.8 VBG O2 Sat (Calc) 23.1 L VBG Base Excess -0.4 L VBG Potassium 4.0 Glucose 81 Lactate 0.8 FiO2 21.0 Sodium 139 136.0 Potassium 4.3 Chloride 100 107.0 Carbon Dioxide 23 Anion Gap 20 BUN 13 Creatinine 0.6 L Est GFR ( Amer) > 60 Est GFR (Non-Af Amer) > 60 Random Glucose 85 Calcium 9.4 Venous Blood Potassium 4.0 08/03/18 08/03/18 05:35 05:35 WBC 12.8 H RBC 3.75 L Hgb 10.5 L Hct 31.9 L MCV 85.1 MCH 28.0 MCHC 33.0 RDW 15.1 H Plt Count 391 MPV Neut % (Auto) Lymph % (Auto) [place] % (Auto) Eos % (Auto) Baso % (Auto) Neut # (Auto) Lymph # (Auto) [place] # (Auto) Eos # (Auto) Baso # (Auto) pO2 VBG pH VBG pCO2 VBG HCO3 VBG Total CO2 VBG O2 Sat (Calc) VBG Base Excess VBG Potassium Glucose Lactate FiO2 Sodium 139 Potassium 3.8 Chloride 103 Carbon Dioxide 25 Anion Gap 15 BUN 9 Creatinine 0.6 L Est GFR ( Amer) > 60 Est GFR (Non-Af Amer) > 60 Random Glucose 85 Calcium 8.9 Venous Blood Potassium Assessment & Plan - Assessment and Plan (Free Text) Assessment: Cellulitis - febrile illness - possible abscess Plan: OB Hospitalist note. With PGY, I saw and examined this patient. Initially, she was going to be discharged home with po antibiotics. She became febrile while in the ER. Agree with note. SHAD
[2018-08-02] MEDS: Oxycodone/Acetaminophen 5/325 mg Tab PO PRN (23:20)
[2018-08-03] MEDS: Oxycodone/Acetaminophen 5/325 mg Tab PO PRN ×4 (05:50→20:12)
[2018-08-03 06:18] LABS: HEMOGLOBIN 10.5 g/dL (12.0-16.0); MEAN CELL VOLUME 85.1 fl (81.0-99.0); RBC 3.75 Mil/uL (3.80-5.20); RED CELL DISTRIBUTION WIDTH 15.1 % (11.5-14.5); WHITE BLOOD COUNT 12.8 K/uL (4.8-10.8)
[2018-08-03 06:35] LABS: BLOOD UREA NITROGEN 9 mg/dl (7-17); CALCIUM 8.9 mg/dL (8.4-10.2); GFR NON-AFRICAN AMERICAN > 60
--- NOTE | 2018-08-03 08:25 | CP.PCM.CON ---
History of Present Illness - History of Present Illness History of Present Illness: Infectious Disease Consultation Note- Asked to see this patient at the request of for cellulitis at the c- section site FREDERICK-Roxie is a 37 year old female with no PMH s/p on 07/21/2018 who is admitted with c/o pain at the incision site for past 2 days She was seen by her OBGYN on post-op day 7 for a wound check where he removed the steri-strips and expressed to the patient that it was healing appropriately. Two days ago she noticed more tenderness around the area which got progressively worse with time. She describes the pain as localized to the wound and 7/10 in severity. she denies any fever or chills, denies any discharge from the site, denies any dysurea, denies any diarrhea, denies any cough or sob, deies any chest pain, denies any nausea or vomiting. I was called by OB last night and advised them to send blood cx and if any discharge at site to send wound culture and sy=fili pompa on vancomycin . was told that pt is allergic to PCN. During interview this morning patient states she was told as a child that she might be allergic to pCN but her mom who ist ather beside states she has taken amoxicillin in past without any problems. Also her mother explains that pt's father is allergic to PCN and hence they assumed that she might be as well. Primary OBGYN: Dr. Mejia PMD: Dr Cotter PMH: denies OBHx: , x3, C/S x1, BTL Allergies: Penicillins, reaction unknown FHx: denies Surgical Hx: facial plastic surgery 1999 Social: denies EtOH, tobacco and illicit drug use ED Course: Temp 101.2 HR 86 Resp 16 BP 116/79 Pulse Ox 98 Abd/Pelvis CT report- 1. A small fluid collection is identified at the pelvic portion of the inferior abdominal wall which trace nondependent gas collection present suspicious for abscess. Prominent local reactive changes surround this area. Differs diagnosis is recent instrumentation with seroma present. Please see discussion above. 2. Likely fibroid uterus. Review of Systems - Review of Systems Review of Systems: ROS- denies any fefver or chills, denies any YATES, denies any cough or sob, denies any chest pain, denies any nausea or vomiting, denies any abd. pain except pain in lower abd plevic region at the site only, denies any discharge, denies any dysurea, denies any diarrhea. Past Patient History - Past Medical History & Family History Past Medical History?: Yes - Past Social History Smoking Status: Never Smoked Home Situation {Lives}: With Family - CARDIAC Hx Cardiac Disorders: No - PULMONARY Hx Respiratory Disorders: No - NEUROLOGICAL Hx Neurological Disorder: No - HEENT Hx HEENT Problems: No - RENAL Hx Chronic Kidney Disease: No - ENDOCRINE/METABOLIC Hx Endocrine Disorders: No - HEMATOLOGICAL/ONCOLOGICAL Hx Blood Disorders: No - INTEGUMENTARY Hx Dermatological Problems: No - MUSCULOSKELETAL/RHEUMATOLOGICAL Hx Musculoskeletal Disorders: No Hx Falls: No - GASTROINTESTINAL Hx Gastrointestinal Disorders: No - GENITOURINARY/GYNECOLOGICAL Hx Genitourinary Disorders: No - PSYCHIATRIC Hx Depression: No - SURGICAL HISTORY Hx Surgeries: Yes (plastic surgery to nose.) - ANESTHESIA Hx Anesthesia: Yes Hx Anesthesia Reactions: No Hx Malignant Hyperthermia: No Meds Allergies/Adverse Reactions: Allergies Allergy/AdvReac Type Severity Reaction Status Date / Time Penicillins Allergy RASH Verified 06/15/18 20:26 - Medications Medications: Current Medications Acetaminophen (Tylenol 325mg Tab) 650 mg PO Q6 PRN PRN Reason: Pain, Mild (1-3) Vancomycin HCl 1 gm/ Sodium (Chloride) 250 mls @ 166.667 mls/hr IVPB DAILY RAVEN; Protocol Oxycodone/Acetaminophen (Percocet 5/325 Mg Tab) 1 tab PO Q4 PRN PRN Reason: Pain, severe (8-10) Stop: 08/05/18 23:00 Last Admin: 08/03/18 05:50 Dose: 1 tab Physical Exam - Constitutional Appears: Non-toxic, No Acute Distress - Head Exam Head Exam: ATRAUMATIC - Eye Exam Eye Exam: EOMI, PERRL - ENT Exam ENT Exam: Normal Oropharynx - Neck Exam Neck exam: Positive for: Full Rom - Respiratory Exam Respiratory Exam: Clear to Auscultation Bilateral, NORMAL BREATHING PATTERN - Cardiovascular Exam Cardiovascular Exam: RRR, +S1, +S2 - GI/Abdominal Exam GI & Abdominal Exam: Normal Bowel Sounds, Soft Additional comments: site minimal erythema only , no discharge, + malodor no fluctuance + tenderness to touch - Extremities Exam Extremities exam: Positive for: normal inspection - Neurological Exam Neurological exam: Alert, Oriented x3 Results - Vital Signs Recent Vital Signs: Last Vital Signs Temp 98.2 F 08/03/18 08:17 Pulse 83 08/03/18 08:17 Resp 20 08/03/18 08:17 BP 109/73 08/03/18 08:17 Pulse Ox 96 08/03/18 08:17 - Labs Result Diagrams: 08/03/18 05:35 08/03/18 05:35 Labs: Laboratory Results - last 24 hr 08/02/18 08/02/18 08/02/18 15:18 15:18 15:19 WBC 14.1 H D RBC 4.12 Hgb 11.3 L Hct 35.5 MCV 86.1 MCH 27.4 MCHC 31.8 L RDW 15.4 H Plt Count 431 H D MPV 7.9 Neut % (Auto) 73.5 Lymph % (Auto) 18.5 L [place] % (Auto) 5.7 Eos % (Auto) 2.1 Baso % (Auto) 0.2 Neut # (Auto) 10.4 H Lymph # (Auto) 2.6 [place] # (Auto) 0.8 Eos # (Auto) 0.3 Baso # (Auto) 0.0 pO2 17 L VBG pH 7.36 VBG pCO2 45 VBG HCO3 22.6 VBG Total CO2 26.8 VBG O2 Sat (Calc) 23.1 L VBG Base Excess -0.4 L VBG Potassium 4.0 Glucose 81 Lactate 0.8 FiO2 21.0 Sodium 139 136.0 Potassium 4.3 Chloride 100 107.0 Carbon Dioxide 23 Anion Gap 20 BUN 13 Creatinine 0.6 L Est GFR ( Amer) > 60 Est GFR (Non-Af Amer) > 60 Random Glucose 85 Calcium 9.4 Venous Blood Potassium 4.0 08/03/18 08/03/18 05:35 05:35 WBC 12.8 H RBC 3.75 L Hgb 10.5 L Hct 31.9 L MCV 85.1 MCH 28.0 MCHC 33.0 RDW 15.1 H Plt Count 391 MPV Neut % (Auto) Lymph % (Auto) [place] % (Auto) Eos % (Auto) Baso % (Auto) Neut # (Auto) Lymph # (Auto) [place] # (Auto) Eos # (Auto) Baso # (Auto) pO2 VBG pH VBG pCO2 VBG HCO3 VBG Total CO2 VBG O2 Sat (Calc) VBG Base Excess VBG Potassium Glucose Lactate FiO2 Sodium 139 Potassium 3.8 Chloride 103 Carbon Dioxide 25 Anion Gap 15 BUN 9 Creatinine 0.6 L Est GFR ( Amer) > 60 Est GFR (Non-Af Amer) > 60 Random Glucose 85 Calcium 8.9 Venous Blood Potassium Laboratory Results - last 72 hr 08/02/18 08/02/18 08/02/18 15:18 15:18 15:19 WBC 14.1 H D RBC 4.12 Hgb 11.3 L Hct 35.5 MCV 86.1 MCH 27.4 MCHC 31.8 L RDW 15.4 H Plt Count 431 H D MPV 7.9 Neut % (Auto) 73.5 Lymph % (Auto) 18.5 L [place] % (Auto) 5.7 Eos % (Auto) 2.1 Baso % (Auto) 0.2 Neut # (Auto) 10.4 H Lymph # (Auto) 2.6 [place] # (Auto) 0.8 Eos # (Auto) 0.3 Baso # (Auto) 0.0 pO2 17 L VBG pH 7.36 VBG pCO2 45 VBG HCO3 22.6 VBG Total CO2 26.8 VBG O2 Sat (Calc) 23.1 L VBG Base Excess -0.4 L VBG Potassium 4.0 Glucose 81 Lactate 0.8 FiO2 21.0 Sodium 139 136.0 Potassium 4.3 Chloride 100 107.0 Carbon Dioxide 23 Anion Gap 20 BUN 13 Creatinine 0.6 L Est GFR ( Amer) > 60 Est GFR (Non-Af Amer) > 60 Random Glucose 85 Calcium 9.4 Venous Blood Potassium 4.0 08/03/18 08/03/18 05:35 05:35 WBC 12.8 H RBC 3.75 L Hgb 10.5 L Hct 31.9 L MCV 85.1 MCH 28.0 MCHC 33.0 RDW 15.1 H Plt Count 391 MPV Neut % (Auto) Lymph % (Auto) [place] % (Auto) Eos % (Auto) Baso % (Auto) Neut # (Auto) Lymph # (Auto) [place] # (Auto) Eos # (Auto) Baso # (Auto) pO2 VBG pH VBG pCO2 VBG HCO3 VBG Total CO2 VBG O2 Sat (Calc) VBG Base Excess VBG Potassium Glucose Lactate FiO2 Sodium 139 Potassium 3.8 Chloride 103 Carbon Dioxide 25 Anion Gap 15 BUN 9 Creatinine 0.6 L Est GFR ( Amer) > 60 Est GFR (Non-Af Amer) > 60 Random Glucose 85 Calcium 8.9 Venous Blood Potassium Accession No. : [id number] Patient Name / ID : VALERIA BRYAN / [id number] Exam Date : 08/02/2018 16:17:29 ( Approved ) Study Comment : Sex / Age : F / 37Y Creator : Kwasi Weaver MD Dictator : Kwasi Weaver MD Licensed [employer] : Negative Turner : Kwasi Weaver MD Approver2 : Report Date : 08/02/2018 16:49:29 My Comment : Date of service: 08/02/2018 PROCEDURE: CT Abdomen and Pelvis with contrast HISTORY: R/O ABSCESS COMPARISON: None. TECHNIQUE: Following the intravenous administration of iodinated contrast material, a CT examination of the abdomen and pelvis was performed from the domes of the diaphragms to the symphysis pubis with reformatted datasets provided in axial, sagittal and coronal planes. Oral contrast was not administered as per referring physician request. Contrast dose: Omnipaque 300, 95 cc Radiation dose: Total exam DLP = 891.15 mGy-cm. This CT exam was performed using one or more of the following dose reduction techniques: Automated exposure control, adjustment of the mA and/or kV according to patient size, and/or use of iterative reconstruction technique. FINDINGS: There is a small fluid collection at the inferior abdominal pelvic wall cephalad to the months pubis region measuring 7.0 x 1.2 cm with trace gas related suspicious for potential abscess unless there has been recent instrumentation. Local reactive changes are prominent related to this fluid collection and further clinical correlation is advised. LOWER THORAX: Linear atelectasis or fibrosis bilateral lung bases. LIVER: Unremarkable. No gross lesion or ductal dilatation. GALLBLADDER AND BILE DUCTS: Unremarkable. PANCREAS: Unremarkable. No gross lesion or ductal dilatation. SPLEEN: Unremarkable. ADRENALS: Unremarkable. No mass. KIDNEYS AND URETERS: Unremarkable. No hydronephrosis. No solid mass. VASCULATURE: Unremarkable. No aortic aneurysm. No aortic atherosclerotic calcification or mural plaque present. BOWEL: Moderate fecal loading is seen throughout the large bowel. No bowel obstruction evident grossly. Small bowel hernia identified containing only fat. Small bowel loops are collapsed and unremarkable appearing grossly. Stomach is also collapsed and is poorly evaluated. Evaluation of the gastrointestinal tract is limited due to the lack of oral contrast administration. APPENDIX: No CT evidence of appendicitis. PERITONEUM: Trace cul-de-sac fluid of uncertain origin. LYMPH NODES: Unremarkable. No enlarged lymph nodes. BLADDER: Unremarkable. REPRODUCTIVE: A bulky enlarged uterus is identified suspicious for underlying fibroid uterine disease. BONES: No acute fracture. OTHER FINDINGS: None. IMPRESSION: 1. A small fluid collection is identified at the pelvic portion of the inferior abdominal wall which trace nondependent gas collection present suspicious for abscess. Prominent local reactive changes surround this area. Differs diagnosis is recent instrumentation with seroma present. Please see discussion above. 2. Likely fibroid uterus. Assessment & Plan (1) Cellulitis Status: Acute (2) Status post Status: Acute (3) Fever Status: Acute (4) Leukocytosis Status: Acute - Assessment and Plan (Free Text) Assessment: A/P- 37 year old female s/p 12 days ago now admitted with fever, pain at site and mild leukocytosis. ct report- small fluid collection ? abscess vs post surgical reaction. afebrile today so far. leukocytosis trending down. PLan- check blood cx x 2. check Ua and urine cx. advise to continue with IV vancomycin 1 Gram BID. Keep vanco trough <15. advise also to start meropenem pending further results to cover for gram neg and anaerobes as well ( less chance of cross reactivity with PCN ). monitor wbc and cx results. if no improvement may need to have fluid seen on ct report drained if no resolution and if amenable to drainage. also advise to apply nystatin ointment to the site as there may be an element of intertrigo as well. all above d/w patient and she verbalizes full understanding of all above and agrees with above plan of care. Thank you for allowing me to take part in the care of this patient.
--- NOTE | 2018-08-03 13:37 | PCM.IRP ---
History of Present Illness - History of Present Illness History of Present Illness: IR asked to evaluate for abdominal wall collection drainage. CT reviewed. Linear fluid collection ( 7 cm transverse x 1.2 cm AP) that is 5 cm below the dermis with inflammatory changes and punctate air. This is likely post surgical changes although infection can not be fully excluded. The collection is NOT amenable to IR drainage given small AP size. Will continue to follow. Recommend ultrasound in a couple of days as clinically indicated to see if collection is increasing in size. Objective - Vital Signs/Intake and Output Vital Signs (last 24 hours): Vital Signs - 24 hr 08/02/18 08/02/18 08/02/18 14:07 19:27 20:07 Temperature 99.7 F H 101.2 F H Pulse Rate 86 Pulse Rate [ Apical] Respiratory 16 Rate Blood Pressure 116/79 O2 Sat by Pulse 98 98 Oximetry 08/02/18 08/02/18 08/02/18 20:10 21:10 21:35 Temperature 101.2 F H 99.6 F 99.6 F Pulse Rate 91 H 91 H Pulse Rate [ Apical] Respiratory 18 18 Rate Blood Pressure 121/75 121/75 O2 Sat by Pulse 96 Oximetry 08/02/18 08/02/18 08/03/18 22:15 22:58 00:10 Temperature 99.0 F 97.9 F Pulse Rate 97 H 90 Pulse Rate [ 97 H Apical] Respiratory 18 18 18 Rate Blood Pressure 100/66 101/68 O2 Sat by Pulse 94 L 95 96 Oximetry 08/03/18 08/03/18 08:17 09:00 Temperature 98.2 F 98.2 F Pulse Rate 83 83 Pulse Rate [ Apical] Respiratory 20 20 Rate Blood Pressure 109/73 109/73 O2 Sat by Pulse 96 96 Oximetry Intake and Output (last 12 hours): Intake & Output 08/02/18 08/03/18 08/03/18 18:59 06:59 18:59 Weight 220 lb - Medications Medications: Current Medications Acetaminophen (Tylenol 325mg Tab) 650 mg PO Q6 PRN PRN Reason: Pain, Mild (1-3) Vancomycin HCl 1 gm/ Sodium (Chloride) 250 mls @ 166.667 mls/hr IVPB DAILY RAVEN; Protocol Last Admin: 08/03/18 09:17 Dose: 166.667 mls/hr Oxycodone/Acetaminophen (Percocet 5/325 Mg Tab) 1 tab PO Q4 PRN PRN Reason: Pain, severe (8-10) Stop: 08/05/18 23:00 Last Admin: 08/03/18 10:50 Dose: 1 tab - Labs Labs (last 24 hours): Laboratory Results - last 24 hr 08/02/18 08/02/18 08/02/18 15:18 15:18 15:19 WBC 14.1 H D RBC 4.12 Hgb 11.3 L Hct 35.5 MCV 86.1 MCH 27.4 MCHC 31.8 L RDW 15.4 H Plt Count 431 H D MPV 7.9 Neut % (Auto) 73.5 Lymph % (Auto) 18.5 L [place] % (Auto) 5.7 Eos % (Auto) 2.1 Baso % (Auto) 0.2 Neut # (Auto) 10.4 H Lymph # (Auto) 2.6 [place] # (Auto) 0.8 Eos # (Auto) 0.3 Baso # (Auto) 0.0 pO2 17 L VBG pH 7.36 VBG pCO2 45 VBG HCO3 22.6 VBG Total CO2 26.8 VBG O2 Sat (Calc) 23.1 L VBG Base Excess -0.4 L VBG Potassium 4.0 Glucose 81 Lactate 0.8 FiO2 21.0 Sodium 139 136.0 Potassium 4.3 Chloride 100 107.0 Carbon Dioxide 23 Anion Gap 20 BUN 13 Creatinine 0.6 L Est GFR ( Amer) > 60 Est GFR (Non-Af Amer) > 60 Random Glucose 85 Calcium 9.4 Venous Blood Potassium 4.0 08/03/18 08/03/18 05:35 05:35 WBC 12.8 H RBC 3.75 L Hgb 10.5 L Hct 31.9 L MCV 85.1 MCH 28.0 MCHC 33.0 RDW 15.1 H Plt Count 391 MPV Neut % (Auto) Lymph % (Auto) [place] % (Auto) Eos % (Auto) Baso % (Auto) Neut # (Auto) Lymph # (Auto) [place] # (Auto) Eos # (Auto) Baso # (Auto) pO2 VBG pH VBG pCO2 VBG HCO3 VBG Total CO2 VBG O2 Sat (Calc) VBG Base Excess VBG Potassium Glucose Lactate FiO2 Sodium 139 Potassium 3.8 Chloride 103 Carbon Dioxide 25 Anion Gap 15 BUN 9 Creatinine 0.6 L Est GFR ( Amer) > 60 Est GFR (Non-Af Amer) > 60 Random Glucose 85 Calcium 8.9 Venous Blood Potassium
[2018-08-03] MEDS: Meropenem 1 GM in Sodium Chloride 0.9% 100 ML IVPB SCH (16:46)
--- NOTE | 2018-08-03 18:36 | CP.PCM.PN ---
Subjective - Date & Time of Evaluation Date of Evaluation: 08/03/18 Time of Evaluation: 18:36 - Subjective Subjective: OB progress note: Pt is a 37 yo F admitted due to abdominal pain at incision site s/p c- section 07/21 (post-op day 13). Pt seen and examined at bedside. Pt has had fever of 102.8 given tylenol. Reports pain located in the RLQ and LLQ where incision is, warmth erythema and odor of the skin near the incision, and chills. Denies d rainage from wound, chest pain, nausea, vomiting, diarrhea, constipation Objective - Vital Signs/Intake and Output Vital Signs (last 24 hours): Temp Pulse Resp BP Pulse Ox 99.6 F 103 H 20 124/79 96 08/03/18 17:50 08/03/18 16:23 08/03/18 16:23 08/03/18 16:23 08/03/18 16:23 - Medications Medications: Current Medications Acetaminophen (Tylenol 325mg Tab) 650 mg PO Q6 PRN PRN Reason: Pain, Mild (1-3) Acetaminophen (Tylenol 325mg Tab) 650 mg PO Q4 PRN PRN Reason: Fever >100.4 F Last Admin: 08/03/18 16:50 Dose: 650 mg Vancomycin HCl 1 gm/ Sodium (Chloride) 250 mls @ 166.667 mls/hr IVPB DAILY [facility]; Protocol Last Admin: 08/03/18 09:17 Dose: 166.667 mls/hr Meropenem 1 gm/ Sodium (Chloride) 100 mls @ 100 mls/hr IVPB Q8 [facility]; Protocol Last Admin: 08/03/18 16:46 Dose: 100 mls/hr Oxycodone/Acetaminophen (Percocet 5/325 Mg Tab) 1 tab PO Q4 PRN PRN Reason: Pain, severe (8-10) Stop: 08/05/18 23:00 Last Admin: 08/03/18 14:58 Dose: 1 tab - Labs Labs: 08/03/18 05:35 08/03/18 05:35 - Constitutional Appears: Well, Non-toxic, No Acute Distress (Obese) - Head Exam Head Exam: ATRAUMATIC, NORMOCEPHALIC - Eye Exam Eye Exam: EOMI - ENT Exam ENT Exam: Mucous Membranes Moist - Respiratory Exam Respiratory Exam: Clear to Ausculation Bilateral, NORMAL BREATHING PATTERN - Cardiovascular Exam Cardiovascular Exam: Tachycardia, +S1, +S2 - GI/Abdominal Exam GI & Abdominal Exam: Soft (Pannus covers incision site), Tenderness (to palpation RLQ and LLQ near C section incision site), Normal Bowel Sounds - Extremities Exam Extremities Exam: Normal Inspection - Skin Skin Exam: Erythema (Surrounding incision site ), Warm (Surrounding incision site) Additional comments: Foul smelling odor. Incision noted to be healing well no blood, no drainage, no necrotic tissue, no fluctuance, no induration. Tenderness to the area when touched Assessment and Plan - Assessment and Plan (Free Text) Assessment: 37-year-old here on post-op day 13 for abdominal pain around incision site. 1. Post-op Cellulitis - Admit to med surg - Follow CBC, WBC 12.1 trending down from 14.1 - Abd/Pelvis CT: 1. A small fluid collection is identified at the pelvic portion of the inferior abdominal wall which trace nondependent gas collection present suspicious for abscess. Prominent local reactive changes surround this area. Differs diagnosis is recent instrumentation with seroma present. Please see discussion above. 2. Likely fibroid uterus. - Pain control: Acetaminophen 650mg mild pain, Percocet 5/325 for moderate and severe pain. - Vanco 1gm Q24H (Day2) - Meropenum 1gm Q8H (Day 1) - ID consulted-Dr. Bernal: recommended Vanco 1gm daily, with Vanc trough <15, Added Meropenum today pending cx results, (recommended nystatin, UA, Urine Cx)- need orders - IR consulted-Dr. Lucius Moody reports fluid collection not ammendable to IR drainage- Recommends U/S in couple of days as clinically indicated to see if collection is increasing in size -Reassess in AM Febrile -T 102.8 -Tylenol PRN -Blood Cx no growth @24hr-Follow up Blood cx Diet -Regular DVT Prophylaxis -SCDs Case reviewed and discussed with Dr. Donny Ramos PGY1
[2018-08-04] MEDS: Meropenem 1 GM in Sodium Chloride 0.9% 100 ML IVPB SCH ×3 (00:18→17:24)
[2018-08-04] MEDS: Oxycodone/Acetaminophen 5/325 mg Tab PO PRN ×3 (04:30→23:38)
--- NOTE | 2018-08-04 12:30 | CP.PCM.PN ---
Subjective - Date & Time of Evaluation Date of Evaluation: 08/04/18 Time of Evaluation: 12:28 - Subjective Subjective: Pt is a 37 yo F admitted due to abdominal pain at incision site s/p c- section 07/21 (post-op day 14). Pt seen and examined at bedside. Pt had no overnight events. Reports pain located in the RLQ and LLQ where incision is, w armth erythema and foul odor of the skin near the incision, and chills. Denies drainage from wound, chest pain, nausea, vomiting, diarrhea, constipation Objective - Vital Signs/Intake and Output Vital Signs (last 24 hours): Temp Pulse Resp BP Pulse Ox 98.6 F 91 H 18 115/75 95 08/03/18 23:47 08/03/18 23:47 08/03/18 23:47 08/03/18 23:47 08/03/18 23:47 - Medications Medications: Current Medications Acetaminophen (Tylenol 325mg Tab) 650 mg PO Q6 PRN PRN Reason: Pain, Mild (1-3) Last Admin: 08/04/18 09:20 Dose: 650 mg Acetaminophen (Tylenol 325mg Tab) 650 mg PO Q4 PRN PRN Reason: Fever >100.4 F Last Admin: 08/03/18 16:50 Dose: 650 mg Vancomycin HCl 1 gm/ Sodium (Chloride) 250 mls @ 166.667 mls/hr IVPB DAILY [facility]; Protocol Last Admin: 08/04/18 09:12 Dose: 166.667 mls/hr Meropenem 1 gm/ Sodium (Chloride) 100 mls @ 100 mls/hr IVPB Q8 [facility]; Protocol Last Admin: 08/04/18 09:06 Dose: 100 mls/hr Nystatin (Nystop Topical Powder) 1 applic TOP TID [facility] Oxycodone/Acetaminophen (Percocet 5/325 Mg Tab) 1 tab PO Q4 PRN PRN Reason: Pain, severe (8-10) Stop: 08/05/18 23:00 Last Admin: 08/04/18 04:30 Dose: 1 tab - Labs Labs: 08/03/18 05:35 08/03/18 05:35 - Constitutional Appears: Well, Non-toxic, No Acute Distress - Head Exam Head Exam: NORMAL INSPECTION - Eye Exam Eye Exam: Normal appearance - ENT Exam ENT Exam: Mucous Membranes Moist - Respiratory Exam Respiratory Exam: Clear to Ausculation Bilateral, NORMAL BREATHING PATTERN. ab sent: Accessory Muscle Use, Chest Wall Tenderness, Decreased Breath Sounds, Prolonged Expiratory Phase, Rales, Rhonchi, Wheezes, Respiratory Distress, Stridor - Cardiovascular Exam Cardiovascular Exam: REGULAR RHYTHM, +S1, +S2 - GI/Abdominal Exam GI & Abdominal Exam: Soft, Tenderness (RLQ tenderness. ), Normal Bowel Sounds. absent: Distended, Firm, Guarding, Rigid Additional comments: erythema noted along fold of pannus. incision dry and clean without any drainage. - Extremities Exam Extremities Exam: Full ROM, Normal Capillary Refill, Normal Inspection. absent: Joint Swelling, Tenderness - Neurological Exam Neurological Exam: Alert, Awake, Oriented x3 - Psychiatric Exam Psychiatric exam: Normal Affect, Normal Mood - Skin Skin Exam: Dry, Intact, Normal Color, Warm Assessment and Plan - Assessment and Plan (Free Text) Assessment: 37-year-old here on post-op day 13 for abdominal pain around incision site. Plan: 1. Post-op Cellulitis - nystatin added for itchiness between pannus folds. - WBC 12.1 trending down from 14.1 - Abd/Pelvis CT: 1. A small fluid collection is identified at the pelvic portion of the inferior abdominal wall which trace nondependent gas collection present suspicious for abscess. Prominent local reactive changes surround this area. Differs diagnosis is recent instrumentation with seroma present. Please see discussion above. 2. Likely fibroid uterus. - Pain control: Acetaminophen 650mg mild pain, Percocet 5/325 for moderate and severe pain. - Vanco 1gm Q24H (Day2) - Meropenum 1gm Q8H (Day 1) - ID consulted-recommended Vanco 1gm daily, with Vanc trough <15, Added Meropenum today pending cx results, (recommended nystatin, UA, Urine Cx)-need orders - IR consulted-Dr. Lucius Moody reports fluid collection not amendable to IR drainage- Recommends U/S in couple of days as clinically indicated to see if collection is increasing in size Febrile - Afebrile at this time. - Last fever :T 102.8 : 08/03/18 -Tylenol PRN -Blood Cx no growth @24hr-Follow up Blood cx Diet -Regular DVT Prophylaxis -SCDs Case reviewed and discussed with Dr. Gregg Ramos PGY1
--- NOTE | 2018-08-04 12:39 | CP.PCM.PN ---
Subjective - Date & Time of Evaluation Date of Evaluation: 08/04/18 Time of Evaluation: 12:39 - Subjective Subjective: ID note- Pt. seen and examined today. pt. eating her lunch. states she feels better but still has pain around incision site. Objective - Vital Signs/Intake and Output Vital Signs (last 24 hours): Temp Pulse Resp BP Pulse Ox 98.6 F 91 H 18 115/75 95 08/03/18 23:47 08/03/18 23:47 08/03/18 23:47 08/03/18 23:47 08/03/18 23:47 - Medications Medications: Current Medications Acetaminophen (Tylenol 325mg Tab) 650 mg PO Q6 PRN PRN Reason: Pain, Mild (1-3) Last Admin: 08/04/18 09:20 Dose: 650 mg Acetaminophen (Tylenol 325mg Tab) 650 mg PO Q4 PRN PRN Reason: Fever >100.4 F Last Admin: 08/03/18 16:50 Dose: 650 mg Vancomycin HCl 1 gm/ Sodium (Chloride) 250 mls @ 166.667 mls/hr IVPB DAILY [facility]; Protocol Last Admin: 08/04/18 09:12 Dose: 166.667 mls/hr Meropenem 1 gm/ Sodium (Chloride) 100 mls @ 100 mls/hr IVPB Q8 [facility]; Protocol Last Admin: 08/04/18 09:06 Dose: 100 mls/hr Nystatin (Nystop Topical Powder) 1 applic TOP TID [facility] Oxycodone/Acetaminophen (Percocet 5/325 Mg Tab) 1 tab PO Q4 PRN PRN Reason: Pain, severe (8-10) Stop: 08/05/18 23:00 Last Admin: 08/04/18 04:30 Dose: 1 tab - Labs Labs: - Additional Findings Additional findings: Constitutional Appears: Non-toxic, No Acute Distress - Head Exam Head Exam: ATRAUMATIC - Eye Exam Eye Exam: EOMI, PERRL - ENT Exam ENT Exam: Normal Oropharynx - Neck Exam Neck exam: Positive for: Full Rom - Respiratory Exam Respiratory Exam: Clear to Auscultation Bilateral, NORMAL BREATHING PATTERN - Cardiovascular Exam Cardiovascular Exam: RRR, +S1, +S2 - GI/Abdominal Exam GI & Abdominal Exam: Normal Bowel Sounds, Soft Additional comments: site minimal erythema has resolved , no discharge, + malodor no fluctuance + tenderness to touch but less than before - Extremities Exam Extremities exam: Positive for: normal inspection - Neurological Exam Neurological exam: Alert, Oriented x 3 Laboratory Results - last 72 hr 08/02/18 08/02/18 08/02/18 15:18 15:18 15:19 WBC 14.1 H D RBC 4.12 Hgb 11.3 L Hct 35.5 MCV 86.1 MCH 27.4 MCHC 31.8 L RDW 15.4 H Plt Count 431 H D MPV 7.9 Neut % (Auto) 73.5 Lymph % (Auto) 18.5 L [place] % (Auto) 5.7 Eos % (Auto) 2.1 Baso % (Auto) 0.2 Neut # (Auto) 10.4 H Lymph # (Auto) 2.6 [place] # (Auto) 0.8 Eos # (Auto) 0.3 Baso # (Auto) 0.0 pO2 17 L VBG pH 7.36 VBG pCO2 45 VBG HCO3 22.6 VBG Total CO2 26.8 VBG O2 Sat (Calc) 23.1 L VBG Base Excess -0.4 L VBG Potassium 4.0 Glucose 81 Lactate 0.8 FiO2 21.0 Sodium 139 136.0 Potassium 4.3 Chloride 100 107.0 Carbon Dioxide 23 Anion Gap 20 BUN 13 Creatinine 0.6 L Est GFR ( Amer) > 60 Est GFR (Non-Af Amer) > 60 Random Glucose 85 Calcium 9.4 Venous Blood Potassium 4.0 08/03/18 08/03/18 05:35 05:35 WBC 12.8 H RBC 3.75 L Hgb 10.5 L Hct 31.9 L MCV 85.1 MCH 28.0 MCHC 33.0 RDW 15.1 H Plt Count 391 MPV Neut % (Auto) Lymph % (Auto) [place] % (Auto) Eos % (Auto) Baso % (Auto) Neut # (Auto) Lymph # (Auto) [place] # (Auto) Eos # (Auto) Baso # (Auto) pO2 VBG pH VBG pCO2 VBG HCO3 VBG Total CO2 VBG O2 Sat (Calc) VBG Base Excess VBG Potassium Glucose Lactate FiO2 Sodium 139 Potassium 3.8 Chloride 103 Carbon Dioxide 25 Anion Gap 15 BUN 9 Creatinine 0.6 L Est GFR ( Amer) > 60 Est GFR (Non-Af Amer) > 60 Random Glucose 85 Calcium 8.9 Venous Blood Potassium Microbiology 08/02/18 15:18 Blood-Venous Blood Culture - Preliminary NO GROWTH AFTER 48 HOURS 08/02/18 21:18 Blood-Venous Blood Culture - Preliminary NO GROWTH AFTER 24 HOURS 08/02/18 19:56 Blood-Venous Blood Culture - Preliminary NO GROWTH AFTER 24 HOURS 08/02/18 15:30 Blood-Venous Blood Culture - Preliminary NO GROWTH AFTER 24 HOURS Assessment and Plan (1) Cellulitis Status: Acute (2) Status post Status: Acute (3) Fever Status: Acute (4) Leukocytosis Status: Acute - Assessment and Plan (Free Text) Assessment: A/P- 37 year old female s/p 12 days ago now admitted with fever, pain at site and mild leukocytosis. ct report- small fluid collection ? abscess vs post surgical reaction. fever of 102 last night. leukocytosis trending down. blood cx- neg x 2 PLan- check Ua and urine cx. advise to continue with IV vancomycin 1 Gram BID. day #2 Keep vanco trough <15. advise also to continue with meropenem day #2. also advise to apply nystatin ointment to the site as there may be an element of intertrigo as well.
[2018-08-04 15:46] VITALS: O2SAT 96
--- NOTE | 2018-08-04 16:37 | RAD ---
Date of service: 08/04/2018 HISTORY: FEVER COMPARISON: 11/05/2014 TECHNIQUE: Chest PA and lateral FINDINGS: LUNGS: No active pulmonary disease. PLEURA: No significant pleural effusion identified. No pneumothorax apparent. CARDIOVASCULAR: No aortic atherosclerotic calcification present. Normal cardiac size. No pulmonary vascular congestion. OSSEOUS STRUCTURES: No significant abnormalities. VISUALIZED UPPER ABDOMEN: Normal. OTHER FINDINGS: None. IMPRESSION: No active disease. No significant interval change compared to the prior examination(s).
[2018-08-04] MEDS: Enoxaparin 40 mg Syringe SC SCH (17:34)
--- NOTE | 2018-08-04 17:51 | US ---
Date of service: 08/04/2018 PROCEDURE: Bilateral lower extremity venous duplex Doppler. HISTORY: R/O DVT COMPARISON: None available. TECHNIQUE: Bilateral common femoral, superficial femoral, popliteal and posterior tibial veins were evaluated. Flow was assessed with color Doppler, compressibility, assessment of phasic flow and augmentation response. FINDINGS: COMMON FEMORAL VEIN: Right CFV: Unremarkable. Left CFV: Unremarkable. SUPERFICIAL FEMORAL VEIN: Right SFV: Unremarkable. Left SFV: Unremarkable. POPLITEAL VEIN: Right Popliteal: Unremarkable. Left Popliteal: Unremarkable. POSTERIOR TIBIAL VEIN: Right PTV: Unremarkable. Left PTV: Unremarkable. OTHER FINDINGS: None. IMPRESSION: No evidence of deep venous thrombosis.
[2018-08-04 18:01] LABS: BASO % 0.3 % (0.0-2.0); EOS # 0.3 K/uL (0.0-0.7); EOS % 2.9 % (0.0-4.0); HEMOGLOBIN 11.1 g/dL (12.0-16.0); LYMPH # 2.8 K/uL (1.0-4.3); LYMPH % 23.5 % (20.0-40.0); MEAN CELL VOLUME 85.6 fl (81.0-99.0); MEAN CORPUSCULAR HEMOGLOBIN 27.8 pg (27.0-31.0); MEAN CORPUSCULAR HGB CONC 32.4 g/dL (33.0-37.0); MEAN PLATELET VOLUME 8.2 fl (7.2-11.7); MONO # 0.8 K/uL (0.0-0.8); MONO % 6.6 % (0.0-10.0); NEUT # 7.9 K/uL (1.8-7.0); NEUT % 66.7 % (50.0-75.0); RBC 4.01 Mil/uL (3.80-5.20); RED CELL DISTRIBUTION WIDTH 15.2 % (11.5-14.5); WHITE BLOOD COUNT 11.9 K/uL (4.8-10.8)
[2018-08-04 18:49] LABS: SQUAMOUS EPITHIAL < 1 /hpf (0-5); URINE BACTERIA OCC (<OCC); URINE BILIRUBIN NEGATIVE (NEGATIVE); URINE BLOOD LARGE (NEGATIVE); URINE CLARITY CLOUDY (Clear); URINE COLOR YELLOW (YELLOW); URINE GLUCOSE (UA) NEG (NEGATIVE); URINE LEUKOCYTE ESTERASE LARGE Leu/uL (Negative); URINE PROTEIN 30 mg/dL (NEGATIVE); URINE UROBILINOGEN 0.2-1.0 mg/dL (0.2-1.0); WBC CLUMPS RARE /hpf
[2018-08-04 23:46] VITALS: PULSE 87
[2018-08-05] MEDS: Meropenem 1 GM in Sodium Chloride 0.9% 100 ML IVPB SCH ×2 (01:27→08:24)
[2018-08-05] MEDS: Oxycodone/Acetaminophen 5/325 mg Tab PO PRN (05:54)
[2018-08-05 05:56] LABS: MEAN CELL VOLUME 85.1 fl (81.0-99.0); MEAN CORPUSCULAR HEMOGLOBIN 27.8 pg (27.0-31.0); MEAN CORPUSCULAR HGB CONC 32.6 g/dL (33.0-37.0); RBC 3.97 Mil/uL (3.80-5.20); RED CELL DISTRIBUTION WIDTH 15.1 % (11.5-14.5); WHITE BLOOD COUNT 10.9 K/uL (4.8-10.8)
[2018-08-05 08:07] VITALS: BP 119/78; RESP 18; TEMP 97.7
[2018-08-05] MEDS: Enoxaparin 40 mg Syringe SC SCH (08:25)
--- NOTE | 2018-08-05 09:11 | CP.PCM.PN ---
Subjective - Date & Time of Evaluation Date of Evaluation: 08/05/18 Time of Evaluation: 09:11 - Subjective Subjective: ID Note- Patient seen and examined today. Patient is in good spirits today and states she feels much better and her pain around incision site is much less. denies any chills, has good appetite. denies any diarrhea or any dysurea. Objective - Vital Signs/Intake and Output Vital Signs (last 24 hours): Temp Pulse Resp BP Pulse Ox 97.7 F 87 18 119/78 96 08/05/18 08:06 08/05/18 08:06 08/05/18 08:06 08/05/18 08:06 08/05/18 08:06 - Medications Medications: Current Medications Acetaminophen (Tylenol 325mg Tab) 650 mg PO Q6 PRN PRN Reason: Pain, Mild (1-3) Last Admin: 08/04/18 09:20 Dose: 650 mg Acetaminophen (Tylenol 325mg Tab) 650 mg PO Q4 PRN PRN Reason: Fever >100.4 F Last Admin: 08/03/18 16:50 Dose: 650 mg Enoxaparin Sodium (Lovenox) 40 mg SC DAILY [facility]; Protocol Last Admin: 08/05/18 08:25 Dose: 40 mg Vancomycin HCl 1 gm/ Sodium (Chloride) 250 mls @ 166.667 mls/hr IVPB DAILY [facility]; Protocol Last Admin: 08/05/18 08:24 Dose: 166.667 mls/hr Meropenem 1 gm/ Sodium (Chloride) 100 mls @ 100 mls/hr IVPB Q8 [facility]; Protocol Last Admin: 08/05/18 08:24 Dose: 100 mls/hr Nystatin (Nystop Topical Powder) 1 applic TOP TID [facility] Last Admin: 08/05/18 08:25 Dose: 1 applic Oxycodone/Acetaminophen (Percocet 5/325 Mg Tab) 1 tab PO Q4 PRN PRN Reason: Pain, severe (8-10) Stop: 08/05/18 23:00 Last Admin: 08/05/18 05:54 Dose: 1 tab - Labs Labs: - Additional Findings Additional findings: Constitutional Appears: Non-toxic, No Acute Distress - Head Exam Head Exam: ATRAUMATIC - Eye Exam Eye Exam: EOMI, PERRL - ENT Exam ENT Exam: Normal Oropharynx - Neck Exam Neck exam: Positive for: Full Rom - Respiratory Exam Respiratory Exam: Clear to Auscultation Bilateral, NORMAL BREATHING PATTERN - Cardiovascular Exam Cardiovascular Exam: RRR, +S1, +S2 - GI/Abdominal Exam GI & Abdominal Exam: Normal Bowel Sounds, Soft Additional comments: site minimal erythema has resolved , no discharge, malodor has resolved no fluctuance not tender now - Extremities Exam Extremities exam: Positive for: normal inspection - Neurological Exam Neurological exam: Alert, Oriented x 3 Laboratory Results - last 72 hr 08/02/18 08/02/18 08/03/18 15:18 15:18 05:35 WBC 14.1 H D 12.8 H RBC 4.12 3.75 L Hgb 11.3 L 10.5 L Hct 35.5 31.9 L MCV 86.1 85.1 MCH 27.4 28.0 MCHC 31.8 L 33.0 RDW 15.4 H 15.1 H Plt Count 431 H D 391 MPV 7.9 Neut % (Auto) 73.5 Lymph % (Auto) 18.5 L [place] % (Auto) 5.7 Eos % (Auto) 2.1 Baso % (Auto) 0.2 Neut # (Auto) 10.4 H Lymph # (Auto) 2.6 [place] # (Auto) 0.8 Eos # (Auto) 0.3 Baso # (Auto) 0.0 Sodium 139 Potassium 4.3 Chloride 100 Carbon Dioxide 23 Anion Gap 20 BUN 13 Creatinine 0.6 L Est GFR ( Amer) > 60 Est GFR (Non-Af Amer) > 60 Random Glucose 85 Calcium 9.4 Urine Color Urine Clarity Urine pH Ur Specific [place] Urine Protein Urine Glucose (UA) Urine Ketones Urine Blood Urine Nitrate Urine Bilirubin Urine Urobilinogen Ur Leukocyte Esterase Urine RBC (Auto) Urine WBC Clumps (Auto) Urine Microscopic WBC Ur Squamous Epith Cells Urine Bacteria 08/03/18 08/04/18 08/04/18 05:35 17:40 18:00 WBC 11.9 H RBC 4.01 Hgb 11.1 L Hct 34.3 MCV 85.6 MCH 27.8 MCHC 32.4 L RDW 15.2 H Plt Count 426 H MPV 8.2 Neut % (Auto) 66.7 Lymph % (Auto) 23.5 [place] % (Auto) 6.6 Eos % (Auto) 2.9 Baso % (Auto) 0.3 Neut # (Auto) 7.9 H Lymph # (Auto) 2.8 [place] # (Auto) 0.8 Eos # (Auto) 0.3 Baso # (Auto) 0.0 Sodium 139 Potassium 3.8 Chloride 103 Carbon Dioxide 25 Anion Gap 15 BUN 9 Creatinine 0.6 L Est GFR ( Amer) > 60 Est GFR (Non-Af Amer) > 60 Random Glucose 85 Calcium 8.9 Urine Color Yellow Urine Clarity Cloudy Urine pH 6.0 Ur Specific [place] 1.008 Urine Protein 30 Urine Glucose (UA) Neg Urine Ketones Negative Urine Blood Large Urine Nitrate Negative Urine Bilirubin Negative Urine Urobilinogen 0.2-1.0 Ur Leukocyte Esterase Large Urine RBC (Auto) 115 H Urine WBC Clumps (Auto) Rare H Urine Microscopic WBC 198 H Ur Squamous Epith Cells < 1 Urine Bacteria Occ H 08/05/18 05:40 WBC 10.9 H RBC 3.97 Hgb 11.0 L Hct 33.8 L MCV 85.1 MCH 27.8 MCHC 32.6 L RDW 15.1 H Plt Count 401 H MPV Neut % (Auto) Lymph % (Auto) [place] % (Auto) Eos % (Auto) Baso % (Auto) Neut # (Auto) Lymph # (Auto) [place] # (Auto) Eos # (Auto) Baso # (Auto) Sodium Potassium Chloride Carbon Dioxide Anion Gap BUN Creatinine Est GFR ( Amer) Est GFR (Non-Af Amer) Random Glucose Calcium Urine Color Urine Clarity Urine pH Ur Specific [place] Urine Protein Urine Glucose (UA) Urine Ketones Urine Blood Urine Nitrate Urine Bilirubin Urine Urobilinogen Ur Leukocyte Esterase Urine RBC (Auto) Urine WBC Clumps (Auto) Urine Microscopic WBC Ur Squamous Epith Cells Urine Bacteria Microbiology 08/02/18 15:18 Blood-Venous Blood Culture - Preliminary NO GROWTH AFTER 3 DAYS 08/02/18 21:18 Blood-Venous Blood Culture - Preliminary NO GROWTH AFTER 48 HOURS 08/02/18 19:56 Blood-Venous Blood Culture - Preliminary NO GROWTH AFTER 48 HOURS 08/02/18 15:30 Blood-Venous Blood Culture - Preliminary NO GROWTH AFTER 48 HOURS Accession No. : [id number] Patient Name / ID : VALERIA BRYAN / [id number] Exam Date : 08/04/2018 16:18:18 ( Approved ) Study Comment : Sex / Age : F / 37Y Creator : ernesto walker Dictator : Mark Reich MD Wind Turbine Engineer : Button Sawyer : Mark Reich MD Approver2 : Report Date : 08/04/2018 16:20:50 My Comment : Date of service: 08/04/2018 HISTORY: FEVER COMPARISON: 11/05/2014 TECHNIQUE: Chest PA and lateral FINDINGS: LUNGS: No active pulmonary disease. PLEURA: No significant pleural effusion identified. No pneumothorax apparent. CARDIOVASCULAR: No aortic atherosclerotic calcification present. Normal cardiac size. No pulmonary vascular congestion. OSSEOUS STRUCTURES: No significant abnormalities. VISUALIZED UPPER ABDOMEN: Normal. OTHER FINDINGS: None. IMPRESSION: No active disease. No significant interval change compared to the prior examinatioAccession No. : [id number] Patient Name / ID : VALERIA BRYAN / [id number] Exam Date : 08/04/2018 16:45:11 ( Approved ) Study Comment : Sex / Age : F / 37Y Creator : Mark Reich MD Dictator : Mark Reich MD Wind Turbine Engineer : Button Sawyer : Mark Reich MD Approver2 : Report Date : 08/04/2018 17:45:22 My Comment : Date of service: 08/04/2018 PROCEDURE: Bilateral lower extremity venous duplex Doppler. HISTORY: R/O DVT COMPARISON: None available. TECHNIQUE: Bilateral common femoral, superficial femoral, popliteal and posterior tibial veins were evaluated. Flow was assessed with color Doppler, compressibility, assessment of phasic flow and augmentation response. FINDINGS: COMMON FEMORAL VEIN: Right CFV: Unremarkable. Left CFV: Unremarkable. SUPERFICIAL FEMORAL VEIN: Right SFV: Unremarkable. Left SFV: Unremarkable. POPLITEAL VEIN: Right Popliteal: Unremarkable. Left Popliteal: Unremarkable. POSTERIOR TIBIAL VEIN: Right PTV: Unremarkable. Left PTV: Unremarkable. OTHER FINDINGS: None. IMPRESSION: No evidence of deep venous thrombosis.n(s). Assessment and Plan (1) Cellulitis Status: Acute (2) Status post Status: Acute (3) Fever Status: Acute (4) Leukocytosis Status: Acute - Assessment and Plan (Free Text) Assessment: A/P- 37 year old female s/p 12 days ago now admitted with fever, pain at site and mild leukocytosis. ct report- small fluid collection ? abscess vs post surgical reaction. clinically much improved. afebrile today leukocytosis has resolved. blood cx- neg x 4 LE US- negative for dvt as per report CXR- negative as per report. PLan- has completed 3 days of IV vanco and meropnem. advise to d/c IV abx now. patient is much improved. advise to be d/c home on oral clindamycin 600 mg q8 hours for 7 days. also advise to apply nystatin ointment to the site BID for 3 more days. advised to f/u with her insurance processor next week. Patient verbalizes full understanding of all above and agrees with above plan of care. d/w OB /Car Wash Attendant [employer] team as well.
--- NOTE | 2018-08-05 16:38 | CP.PCM.DIS ---
<Karine Kline - Last Filed: 08/05/18 19:27> Provider - Provider Date of Admission: 08/02/18 18:43 Attending physician: Kwasi Moore DO Consults: 08/03/18 07:00 Infectious Disease Consult Routine Comment: Consulting Provider: Dorothea Bernal Consulting Physician: Dorothea Bernal Reason for Consult: cellulitis s/p 07/21, WBC 14.1, Tmax >101.5 Infectious Disease Consult Stat Comment: Consulting Provider: Dorothea Bernal Consulting Physician: Dorothea Bernal Reason for Consult: cellulitis s/p 07/2108/03/18 14:23 Radiology Consult Routine Comment: Interventional Radiology Consulting Provider: Lucius Moody Consulting Physician: Lucius Moody Reason for Consult: ABD FLUID COLLECTION S/P 07/21 (7x1.2) Time Spent in preparation of Discharge (in minutes): 45 Diagnosis - Discharge Diagnosis (1) Cellulitis Status: Acute Hospital Course - Lab Results Lab Results: Micro Results 08/02/18 15:30 Blood-Venous Blood Culture - Preliminary NO GROWTH AFTER 3 DAYS 08/02/18 15:18 Blood-Venous Blood Culture - Preliminary NO GROWTH AFTER 3 DAYS 08/02/18 21:18 Blood-Venous Blood Culture - Preliminary NO GROWTH AFTER 48 HOURS 08/02/18 19:56 Blood-Venous Blood Culture - Preliminary NO GROWTH AFTER 48 HOURS Most Recent Lab Values WBC 10.9 K/uL (4.8-10.8) H 08/05/18 05:40 RBC 3.97 Mil/uL (3.80-5.20) 08/05/18 05:40 Hgb 11.0 g/dL (12.0-16.0) L 08/05/18 05:40 Hct 33.8 % (34.0-47.0) L 08/05/18 05:40 MCV 85.1 fl (81.0-99.0) 08/05/18 05:40 MCH 27.8 pg (27.0-31.0) 08/05/18 05:40 MCHC 32.6 g/dL (33.0-37.0) L 08/05/18 05:40 RDW 15.1 % (11.5-14.5) H 08/05/18 05:40 Plt Count 401 K/uL (130-400) H 08/05/18 05:40 MPV 8.2 fl (7.2-11.7) 08/04/18 17:40 Neut % (Auto) 66.7 % (50.0-75.0) 08/04/18 17:40 Lymph % (Auto) 23.5 % (20.0-40.0) 08/04/18 17:40 [place] % (Auto) 6.6 % (0.0-10.0) 08/04/18 17:40 Eos % (Auto) 2.9 % (0.0-4.0) 08/04/18 17:40 Baso % (Auto) 0.3 % (0.0-2.0) 08/04/18 17:40 Neut # (Auto) 7.9 K/uL (1.8-7.0) H 08/04/18 17:40 Lymph # (Auto) 2.8 K/uL (1.0-4.3) 08/04/18 17:40 [place] # (Auto) 0.8 K/uL (0.0-0.8) 08/04/18 17:40 Eos # (Auto) 0.3 K/uL (0.0-0.7) 08/04/18 17:40 Baso # (Auto) 0.0 K/uL (0.0-0.2) 08/04/18 17:40 pO2 17 mm/Hg (30-55) L 08/02/18 15:19 VBG pH 7.36 (7.32-7.43) 08/02/18 15:19 VBG pCO2 45 mmHg (40-60) 08/02/18 15:19 VBG HCO3 22.6 mmol/L 08/02/18 15:19 VBG Total CO2 26.8 mmol/L (22-28) 08/02/18 15:19 VBG O2 Sat (Calc) 23.1 % (40-65) L 08/02/18 15:19 VBG Base Excess -0.4 mmol/L (0.0-2.0) L 08/02/18 15:19 VBG Potassium 4.0 mmol/L (3.6-5.2) 08/02/18 15:19 Sodium 136.0 mmol/L (132-148) 08/02/18 15:19 Chloride 107.0 mmol/L (98-107) 08/02/18 15:19 Glucose 81 mg/dL (65-105) 08/02/18 15:19 Lactate 0.8 mmol/L (0.7-2.1) 08/02/18 15:19 FiO2 21.0 % 08/02/18 15:19 Sodium 139 mmol/l (132-148) 08/03/18 05:35 Potassium 3.8 MMOL/L (3.6-5.0) 08/03/18 05:35 Chloride 103 mmol/L (98-107) 08/03/18 05:35 Carbon Dioxide 25 mmol/L (22-30) 08/03/18 05:35 Anion Gap 15 (10-20) 08/03/18 05:35 BUN 9 mg/dl (7-17) 08/03/18 05:35 Creatinine 0.6 mg/dl (0.7-1.2) L 08/03/18 05:35 Est GFR ( Amer) > 60 08/03/18 05:35 Est GFR (Non-Af Amer) > 60 08/03/18 05:35 Random Glucose 85 mg/dL (65-105) 08/03/18 05:35 Calcium 8.9 mg/dL (8.4-10.2) 08/03/18 05:35 Venous Blood Potassium 4.0 mmol/L (3.6-5.2) 08/02/18 15:19 Urine Color Yellow (YELLOW) 08/04/18 18:00 Urine Clarity Cloudy (Clear) 08/04/18 18:00 Urine pH 6.0 (5.0-8.0) 08/04/18 18:00 Ur Specific [place] 1.008 (1.003-1.030) 08/04/18 18:00 Urine Protein 30 mg/dL (NEGATIVE) 08/04/18 18:00 Urine Glucose (UA) Neg mg/dL (NEGATIVE) 08/04/18 18:00 Urine Ketones Negative mg/dL (NEGATIVE) 08/04/18 18:00 Urine Blood Large (NEGATIVE) 08/04/18 18:00 Urine Nitrate Negative (NEGATIVE) 08/04/18 18:00 Urine Bilirubin Negative (NEGATIVE) 08/04/18 18:00 Urine Urobilinogen 0.2-1.0 mg/dL (0.2-1.0) 08/04/18 18:00 Ur Leukocyte Esterase Large Rebeca/uL (Negative) 08/04/18 18:00 Urine RBC (Auto) 115 /hpf (0-3) H 08/04/18 18:00 Urine WBC Clumps (Auto) Rare /hpf (NONE) H 08/04/18 18:00 Urine Microscopic WBC 198 /hpf (0-5) H 08/04/18 18:00 Ur Squamous Epith Cells < 1 /hpf (0-5) 08/04/18 18:00 Urine Bacteria Occ (<OCC) H 08/04/18 18:00 - Hospital Course Hospital Course: Ketty initially presented to the ED complaining of 2 days of worsening abdomi nal incisional pain as well as fevers and myalgias after her on 07/21. She was found to have cellulitis of her inferior abdominal wall, superiorly to her incision, and met sepsis criteria on admission. No erythema or drainage was seen around her surgical site and the redness and induration were limited to her pannus. She was started on empiric antibiotics and completed 3 days of IV Vancom ycin and Mirepenem (due to a penicillin allergy). She has a CT of the abdomen which showed a small fluid collected in the subcutaneous tissue of her inferior and anterior abdominal wall. IR was consulted but did not feel the fluid collection was amenable to drainage. Her pain greatly improved with treatment and on the day of discharge she had been afebrile for >24 hours and was tolerating PO fine. She was instructed to use ibuprofen for pain and use her hydrocodone from her sparingly. She was given a 7 day course of clindamycin (which is safe while ) and a 3 day course of nystatin powder to place under her pannus daily. All questions were answered and the patient was discharged in stable condition. She will make a f/u appt this week with her OBGYN to make sure that her cellulitis continues to resolve. Discharge Exam - Head Exam Head Exam: NORMAL INSPECTION - Eye Exam Eye Exam: EOMI, Normal appearance, PERRL - ENT Exam ENT Exam: Mucous Membranes Moist - Respiratory Exam Respiratory Exam: NORMAL BREATHING PATTERN, UNREMARKABLE - GI/Abdominal Exam Additional comments: site remains without erythema, no drainage. There is less edema and induration of the pannus, it is cloth finishing range back tender to palpation. Discharge Plan - Discharge Medications Prescriptions: RX: Clindamycin [Cleocin] 600 mg PO TID 7 Days #42 cap RX: Nystatin [Nyamyc] 15 gm TP BID 3 Days #1 powder - Follow Up Plan Condition: FAIR Disposition: HOME/ ROUTINE Instructions: Cellulitis (Skin Infection), Adult (DC), Cellulitis (DC), Cellulitis (GEN), Abscess (GEN) Additional Instructions: follow up with primary MD and INFORMATICS DEVELOPER 1 week Referrals: Magali Cotter [Staff Provider] - Uche Mejia MD [Staff Provider] - <Benigno Hansen O - Last Filed: 08/07/18 14:56> Provider - Provider Date of Admission: 08/02/18 18:43 Attending physician: Kwasi Moore DO Consults: 08/03/18 07:00 Infectious Disease Consult Routine Comment: Consulting Provider: Dorothea Bernal Consulting Physician: Dorothea Bernal Reason for Consult: cellulitis s/p 07/21, WBC 14.1, Tmax >101.5 Infectious Disease Consult Stat Comment: Consulting Provider: Dorothea Bernal Consulting Physician: Dorothea Bernal Reason for Consult: cellulitis s/p 07/2108/03/18 14:23 Radiology Consult Routine Comment: Interventional Radiology Consulting Provider: Lucius Moody Consulting Physician: Lucius Moody Reason for Consult: ABD FLUID COLLECTION S/P 07/21 (7x1.2) Hospital Course - Lab Results Lab Results: Micro Results 08/02/18 21:18 Blood-Venous Blood Culture - Preliminary NO GROWTH AFTER 4 DAYS 08/02/18 19:56 Blood-Venous Blood Culture - Preliminary NO GROWTH AFTER 4 DAYS 08/02/18 15:30 Blood-Venous Blood Culture - Preliminary NO GROWTH AFTER 4 DAYS 08/02/18 15:18 Blood-Venous Blood Culture - Preliminary NO GROWTH AFTER 4 DAYS 08/04/18 18:00 Urine,Clean Catch Urine Culture - Final No Growth (<1,000 CFU/ML) Most Recent Lab Values WBC 10.9 K/uL (4.8-10.8) H 08/05/18 05:40 RBC 3.97 Mil/uL (3.80-5.20) 08/05/18 05:40 Hgb 11.0 g/dL (12.0-16.0) L 08/05/18 05:40 Hct 33.8 % (34.0-47.0) L 08/05/18 05:40 MCV 85.1 fl (81.0-99.0) 08/05/18 05:40 MCH 27.8 pg (27.0-31.0) 08/05/18 05:40 MCHC 32.6 g/dL (33.0-37.0) L 08/05/18 05:40 RDW 15.1 % (11.5-14.5) H 08/05/18 05:40 Plt Count 401 K/uL (130-400) H 08/05/18 05:40 MPV 8.2 fl (7.2-11.7) 08/04/18 17:40 Neut % (Auto) 66.7 % (50.0-75.0) 08/04/18 17:40 Lymph % (Auto) 23.5 % (20.0-40.0) 08/04/18 17:40 [place] % (Auto) 6.6 % (0.0-10.0) 08/04/18 17:40 Eos % (Auto) 2.9 % (0.0-4.0) 08/04/18 17:40 Baso % (Auto) 0.3 % (0.0-2.0) 08/04/18 17:40 Neut # (Auto) 7.9 K/uL (1.8-7.0) H 08/04/18 17:40 Lymph # (Auto) 2.8 K/uL (1.0-4.3) 08/04/18 17:40 [place] # (Auto) 0.8 K/uL (0.0-0.8) 08/04/18 17:40 Eos # (Auto) 0.3 K/uL (0.0-0.7) 08/04/18 17:40 Baso # (Auto) 0.0 K/uL (0.0-0.2) 08/04/18 17:40 pO2 17 mm/Hg (30-55) L 08/02/18 15:19 VBG pH 7.36 (7.32-7.43) 08/02/18 15:19 VBG pCO2 45 mmHg (40-60) 08/02/18 15:19 VBG HCO3 22.6 mmol/L 08/02/18 15:19 VBG Total CO2 26.8 mmol/L (22-28) 08/02/18 15:19 VBG O2 Sat (Calc) 23.1 % (40-65) L 08/02/18 15:19 VBG Base Excess -0.4 mmol/L (0.0-2.0) L 08/02/18 15:19 VBG Potassium 4.0 mmol/L (3.6-5.2) 08/02/18 15:19 Sodium 136.0 mmol/L (132-148) 08/02/18 15:19 Chloride 107.0 mmol/L (98-107) 08/02/18 15:19 Glucose 81 mg/dL (65-105) 08/02/18 15:19 Lactate 0.8 mmol/L (0.7-2.1) 08/02/18 15:19 FiO2 21.0 % 08/02/18 15:19 Sodium 139 mmol/l (132-148) 08/03/18 05:35 Potassium 3.8 MMOL/L (3.6-5.0) 08/03/18 05:35 Chloride 103 mmol/L (98-107) 08/03/18 05:35 Carbon Dioxide 25 mmol/L (22-30) 08/03/18 05:35 Anion Gap 15 (10-20) 08/03/18 05:35 BUN 9 mg/dl (7-17) 08/03/18 05:35 Creatinine 0.6 mg/dl (0.7-1.2) L 08/03/18 05:35 Est GFR ( Amer) > 60 08/03/18 05:35 Est GFR (Non-Af Amer) > 60 08/03/18 05:35 Random Glucose 85 mg/dL (65-105) 08/03/18 05:35 Calcium 8.9 mg/dL (8.4-10.2) 08/03/18 05:35 Venous Blood Potassium 4.0 mmol/L (3.6-5.2) 08/02/18 15:19 Urine Color Yellow (YELLOW) 08/04/18 18:00 Urine Clarity Cloudy (Clear) 08/04/18 18:00 Urine pH 6.0 (5.0-8.0) 08/04/18 18:00 Ur Specific [place] 1.008 (1.003-1.030) 08/04/18 18:00 Urine Protein 30 mg/dL (NEGATIVE) 08/04/18 18:00 Urine Glucose (UA) Neg mg/dL (NEGATIVE) 08/04/18 18:00 Urine Ketones Negative mg/dL (NEGATIVE) 08/04/18 18:00 Urine Blood Large (NEGATIVE) 08/04/18 18:00 Urine Nitrate Negative (NEGATIVE) 08/04/18 18:00 Urine Bilirubin Negative (NEGATIVE) 08/04/18 18:00 Urine Urobilinogen 0.2-1.0 mg/dL (0.2-1.0) 08/04/18 18:00 Ur Leukocyte Esterase Large Rebeca/uL (Negative) 08/04/18 18:00 Urine RBC (Auto) 115 /hpf (0-3) H 08/04/18 18:00 Urine WBC Clumps (Auto) Rare /hpf (NONE) H 08/04/18 18:00 Urine Microscopic WBC 198 /hpf (0-5) H 08/04/18 18:00 Ur Squamous Epith Cells < 1 /hpf (0-5) 08/04/18 18:00 Urine Bacteria Occ (<OCC) H 08/04/18 18:00 Attending/Attestation - Attestation I have personally seen and examined this patient.: Yes I have fully participated in the care of the patient.: Yes I have reviewed all pertinent clinical information, including history, physical exam and plan: Yes
== END 2018-08-05 17:51 | disposition home or self-care (01) | DRG 776 ==
LOC: H.ER 14:04 → H.ERHOLD 18:43 → H.MEDSURG1 22:05
PROVIDERS: ADMIT Obstetrics & Gynecology; ATTEND Obstetrics & Gynecology
DX: O86.03 Infection of obstetric surgical wound, organ and space site (principal); L03.311 Cellulitis of abdominal wall; L30.4 Erythema intertrigo; D72.828 Other elevated white blood cell count; D25.9 Leiomyoma of uterus, unspecified; Z98.891 History of uterine scar from previous surgery; Z88.0 Allergy status to penicillin

== ENCOUNTER 2018-09-04 03:50 | Emergency (ER) | payer BC ==
[2018-09-04 03:51] VITALS: BMI 38.4
--- NOTE | 2018-09-04 04:12 | ED PDOC ---
HPI: SOB/CHF/COPD Time Seen by Provider: 09/04/18 03:55 Chief Complaint (Nursing): Respiratory Distress History Per: Patient History/Exam Limitations: no limitations Onset/Duration Of Symptoms: Mins Additional Complaint(s): 37 year old status post 1 month ago presenting with stabbing back pain radiating into the chest, states it started 20-30 minutes prior to arrival, states the pain was so unbearable she was unable to take deep breaths and needed to take an oxycodone to alleviate the pain but it did not help. States she was "fine" yesterday and was in her usual state of health. Denies recent illnesses but is currently on antibiotics for a "foul discharge" coming from her incisional scar for which she has an appointment with Dr. Escobedo next week. No fevers, nonsmoker. PMD: Dr. Cotter Past Medical History Reviewed: Historical Data, Nursing Documentation, Vital Signs Vital Signs: Last Vital Signs Temp 97.5 F L 09/04/18 04:01 Pulse 70 09/04/18 04:01 Resp 16 09/04/18 04:01 BP 128/79 09/04/18 04:01 Pulse Ox 100 09/04/18 04:01 - Medical History PMH: Denies: Depression, Diabetes, HTN, Chronic Kidney Disease - Family History Family History: States: Unknown Family Hx - Immunization History Hx Tetanus Toxoid Vaccination: No Hx Influenza Vaccination: No Hx Pneumococcal Vaccination: No - Home Medications Home Medications: Ambulatory Orders Medication Instructions Recorded Famotidine [Pepcid] 20 mg PO BID #30 tab 04/17/15 Pnv No.95/Ferrous Fum/Folic AC 1 tab PO DAILY MDD 1 07/21/18 [ Vitamin Tablet] Ibuprofen [Motrin Tab] 600 mg PO Q6 PRN tab 07/24/18 oxyCODONE/Acetaminophen [Percocet 2 tab PO Q4 PRN tab 07/24/18 5/325 mg Tab] Clindamycin [Cleocin] 600 mg PO TID 7 Days #42 cap 08/05/18 Nystatin [Nyamyc] 15 gm TP BID 3 Days #1 powder 08/05/18 - Allergies Allergies/Adverse Reactions: Allergies Allergy/AdvReac Type Severity Reaction Status Date / Time Penicillins Allergy RASH Verified 06/15/18 20:26 Curb-65 Severity Score - CURB-65 Severity Score Confusion: No Bun >19mg/dl (>7mmol/L): No Respiratory Rate greater than/equal to 30: No Systolic BP <90 or Diastolic BP less than/equal 60mmHg: No Age >64: No Curb-65 Score: 0 Percentage 30-day mortality: 0.6% Review of Systems ROS Statement: Except As Marked, All Systems Reviewed And Found Negative Cardiovascular: Positive for: Chest Pain Respiratory: Positive for: Shortness of Breath Musculoskeletal: Positive for: Back Pain Physical Exam - Reviewed Nursing Documentation Reviewed: Yes Vital Signs Reviewed: Yes - Physical Exam Appears: Positive for: Non-toxic, Uncomfortable Head Exam: Positive for: ATRAUMATIC, NORMAL INSPECTION, NORMOCEPHALIC Skin: Positive for: Normal Color, Warm, DRY Eye Exam: Positive for: EOMI, Normal appearance, PERRL ENT: Positive for: Normal ENT Inspection Neck: Positive for: Normal, Painless ROM Cardiovascular/Chest: Positive for: Regular Rate, Rhythm Respiratory: Positive for: CNT, Normal Breath Sounds Gastrointestinal/Abdominal: Positive for: Normal Exam, Soft Back: Positive for: Normal Inspection Extremity: Positive for: Normal ROM Neurological/Psych: Positive for: Awake, Alert, Other (Crying) - Laboratory Results Result Diagrams: 09/04/18 05:00 09/04/18 05:00 - ECG ECG Rhythm: Positive for: Normal QRS, Normal ST Segment, Sinus Rhythm Rate: 73 O2 Sat by Pulse Oximetry: 100 Pulse Ox Interpretation: Normal Medical Decision Making Medical Decision Makin37 year old F presenting with chest pain, back pain, and shortness of breath --Patient uncomfortable, vitals stable --Possibly MSK, will get dimer to rule out PE, CXR to rule out PTX or PNA --Toradol for pain relief 700 --Patient is still in pain after toradol, pepcid, flexeril, and morphine --Will obtain CT to rule out PE or other pathology --Case endorsed to Dr. Martinez Disposition - Clinical Impression Clinical Impression: Chest pain, Back pain - Patient ED Disposition Is Patient to be Admitted: Transfer of Care - Disposition Referrals: Magali Cotter [Family Provider] - Disposition: Transfer of Care Disposition Time: 07:00 Condition: IMPROVED Additional Instructions: IRVIN GALARZA, thank you for letting us take care of you today. Your provider was David Martinez MD and you were treated for SOB,BACK PAIN,CHEST PAIN. The emergency medical care you received today was directed at your acute symptoms. If you were prescribed any medication, please fill it and take as directed. It may take several days for your symptoms to resolve. Return to the Emergency Department if your symptoms worsen, do not improve, or if you have any other problems. Please contact your doctor or call one of the physicians/clinics you have been referred to that are listed on the Patient Visit Information form that is included in your discharge packet. Bring any paperwork you were given at discharge with you along with any medications you are taking to your follow up visit. Our treatment cannot replace ongoing medical care by a primary care provider outside of the emergency department. Thank you for allowing the [facility] team to be part of your care today. If you had an X-Ray or CT scan: A Radiologist will review the ED reading if any change in treatment is needed we will contact you. If you had a blood, urine, or wound culture: It will take several days for the results, if any change in treatment is needed we will contact you. If you had an STI test: It will take 48 hours for the results. Please call after 1 week if you have not heard back. Instructions: Chest Pain (DC), Upper Back Pain (DC), Gallstones (DC) Forms: [employer] (Cook Islander) Patient Signed Over To: David Martinez Handoff Comments: pending CTA and re-eval
[2018-09-04 06:09] LABS: BLOOD UREA NITROGEN 16 mg/dl (7-17); CALCIUM 9.5 mg/dL (8.4-10.2); GFR NON-AFRICAN AMERICAN > 60
[2018-09-04 06:10] LABS: BASO % 0.3 % (0.0-2.0); EOS # 0.5 K/uL (0.0-0.7); EOS % 4.7 % (0.0-4.0); HEMOGLOBIN 11.2 g/dL (12.0-16.0); LYMPH # 4.2 K/uL (1.0-4.3); LYMPH % 38.9 % (20.0-40.0); MEAN CELL VOLUME 84.8 fl (81.0-99.0); MEAN CORPUSCULAR HEMOGLOBIN 28.3 pg (27.0-31.0); MEAN CORPUSCULAR HGB CONC 33.4 g/dL (33.0-37.0); MEAN PLATELET VOLUME 8.9 fl (7.2-11.7); MONO # 0.7 K/uL (0.0-0.8); MONO % 6.5 % (0.0-10.0); NEUT # 5.3 K/uL (1.8-7.0); NEUT % 49.6 % (50.0-75.0); NRBC % 0.2 % (0.0-0.0); RBC 3.95 Mil/uL (3.80-5.20); RED CELL DISTRIBUTION WIDTH 17.1 % (11.5-14.5); WHITE BLOOD COUNT 10.7 K/uL (4.8-10.8)
[2018-09-04 06:21] LABS: B-TYPE NATRIURETIC PEPTIDE 61.1 pg/ml (0-450)
--- NOTE | 2018-09-04 07:14 | ED PDOC ---
- Laboratory Results Result Diagrams: 09/04/18 05:00 09/04/18 05:00 Lab Results: D-Dimer, Quantitative < 200 ng/mlDDU (0-230) 09/04/18 05:00 Troponin I < 0.0120 ng/mL (0.00-0.120) 09/04/18 05:00 NT-Pro-B Natriuret Pep 61.1 pg/ml (0-450) 09/04/18 05:00 Lipase 97 U/L (23-300) 09/04/18 06:50 - ECG O2 Sat by Pulse Oximetry: 100 (RA) Pulse Ox Interpretation: Normal - Progress Re-evaluation Time: 10:59 Condition: Re-examined, Improved Medical Decision Making Medical Decision Making: Time: 0700 -- Patient endorsed to me by Dr. Shetty, pending CT Chest, labs, re-evaluation and final ER disposition. Patient been evaluated at bedside. VS stable. No apparent distress. Time: 1916 CT ANGIO RESULTS FINDINGS: PULMONARY ARTERIES: Unremarkable. No pulmonary embolism. AORTA: No acute findings. No thoracic aortic aneurysm. No aortic atherosclerotic calcification or mural plaque present. LUNGS: Unremarkable. No nodule, mass or pulmonary consolidation. PLEURAL SPACES: Unremarkable. No effusion or pneumothorax. HEART: Unremarkable. No cardiomegaly. No significant pericardial effusion. LYMPH NODES: No lymphadenopathy. BONES, CHEST WALL: Unremarkable. No fracture or destructive lesion OTHER FINDINGS: CHOLELITHIASIS WITH DISTENDED GALLBLADDER. IMPRESSION: NO PULMONARY EMBOLISM. Scribe Attestation: Documented by Tejas Gimenez, acting as a scribe for David Martinez MD. Provider Scribe Attestation: All medical record entries made by the Scribe were at my direction and personally dictated by me. I have reviewed the chart and agree that the record accurately reflects my personal performance of the history, physical exam, medical decision making, and the department course for this patient. I have also personally directed, reviewed, and agree with the discharge instructions and disposition. Disposition Doctor Will See Patient In The: Office Counseled Patient/Family Regarding: Studies Performed, Diagnosis, Need For Followup - Clinical Impression Clinical Impression: Chest pain, Back pain - POA Present On Arrival: None - Disposition Referrals: Magali Cotter [Family Provider] - Disposition: Routine/Home Disposition Time: 11:02 Condition: IMPROVED Additional Instructions: IRVIN GALARZA, thank you for letting us take care of you today. Your provider was David Martinez MD and you were treated for SOB,BACK PAIN,CHEST PAIN. The emergency medical care you received today was directed at your acute symptoms. If you were prescribed any medication, please fill it and take as directed. It may take several days for your symptoms to resolve. Return to the Emergency Department if your symptoms worsen, do not improve, or if you have any other problems. Please contact your doctor or call one of the physicians/clinics you have been referred to that are listed on the Patient Visit Information form that is included in your discharge packet. Bring any paperwork you were given at discharge with you along with any medications you are taking to your follow up visit. Our treatment cannot replace ongoing medical care by a primary care provider outside of the emergency department. Thank you for allowing the [facility] team to be part of your care today. If you had an X-Ray or CT scan: A Radiologist will review the ED reading if any change in treatment is needed we will contact you. If you had a blood, urine, or wound culture: It will take several days for the results, if any change in treatment is needed we will contact you. If you had an STI test: It will take 48 hours for the results. Please call after 1 week if you have not heard back. Instructions: Chest Pain (DC), Upper Back Pain (DC) Forms: [employer] (Khmer)
[2018-09-04 07:25] LABS: BILIRUBIN,DIRECT 0.2 mg/ml (0.0-0.4)
[2018-09-04] MEDS ORDERED: Iodixanol 320 MG/ML 100 ML BOTTLE IV ONE (07:40)
[2018-09-04] MEDS ORDERED: Sodium Chloride 0.9% 50 ML IV ONE (07:40)
[2018-09-04 08:04] VITALS: RESP 16
--- NOTE | 2018-09-04 08:45 | RAD ---
Date of service: 09/04/2018 HISTORY: chest pain, back pain COMPARISON: No prior. TECHNIQUE: Chest PA and lateral FINDINGS: LUNGS: No active pulmonary disease. PLEURA: No significant pleural effusion identified. No pneumothorax apparent. CARDIOVASCULAR: No aortic atherosclerotic calcification present. Normal cardiac size. No pulmonary vascular congestion. OSSEOUS STRUCTURES: No significant abnormalities. VISUALIZED UPPER ABDOMEN: Normal. OTHER FINDINGS: None. IMPRESSION: No active disease.
--- NOTE | 2018-09-04 09:21 | CT ---
Date of service: 09/04/2018 PROCEDURE: CT Chest with contrast (Pulmonary Angiogram) HISTORY: continuous chest pain/back pain COMPARISON: None available. TECHNIQUE: Axial computed tomography images were obtained of the chest in the pulmonary arterial phase of enhancement. Coronal and sagittal reformatted images were created and reviewed. Intravenous contrast dose: Radiation dose: Total exam DLP = 355.57 mGy-cm. This CT exam was performed using one or more of the following dose reduction techniques: Automated exposure control, adjustment of the mA and/or kV according to patient size, and/or use of iterative reconstruction technique. FINDINGS: PULMONARY ARTERIES: Unremarkable. No pulmonary embolism. AORTA: No acute findings. No thoracic aortic aneurysm. No aortic atherosclerotic calcification or mural plaque present. LUNGS: Unremarkable. No nodule, mass or pulmonary consolidation. PLEURAL SPACES: Unremarkable. No effusion or pneumothorax. HEART: Unremarkable. No cardiomegaly. No significant pericardial effusion. LYMPH NODES: No lymphadenopathy. BONES, CHEST WALL: Unremarkable. No fracture or destructive lesion OTHER FINDINGS: CHOLELITHIASIS WITH DISTENDED GALLBLADDER. IMPRESSION: NO PULMONARY EMBOLISM.
[2018-09-04 09:29] VITALS: O2SAT 100
[2018-09-04 11:21] VITALS: BP 119/66; TEMP 97.8
[2018-09-04 19:53] VITALS: PULSE 73
--- NOTE | 2018-09-04 19:59 | CARD ---
APPROVED REPORT Date of service: 09/04/2018 EKG Measurement Heart [id number] <Conclusion> Normal sinus rhythm Normal ECG
== END 2018-09-04 11:06 | disposition home or self-care (01) ==
LOC: H.ER 03:50
DX: R07.89 Other chest pain (principal); M54.9 Dorsalgia, unspecified; Z88.0 Allergy status to penicillin
CPT/HCPCS: 71046; 71275; 80048; 80076; 81025; 83690; 83880; 84484; 85025; 85378; 93005; 96374; 96375; 99285; J1885; J2270; Q9967